=== PATIENT | male | born 1955 | race Caucasian/White ===

== ENCOUNTER 2018-06-09 19:55 | Inpatient (IN) ==
[2018-06-09] MEDS ORDERED: Acetaminophen 325 MG Tablet PO ONE (20:05)
[2018-06-09] MEDS ORDERED: Azithromycin Inj 500 MG in Sodium Chlor 0.9% Inj 250 ML IV.SIG STA (20:05)
--- NOTE | 2018-06-09 20:10 | ED ---
HPI General Chief Complaint: Medical Clearance Stated Complaint: Sepsis Time Seen by Provider: 06/09/18 20:05 Source: patient and EMS Mode of arrival: EMS Limitations: no limitations History of Present Illness HPI Narrative: 62-year-old male patient with history of diabetes, hypertension, obesity, presents to the ER today brought in by EMS for several weeks history of cough, cold symptoms, getting worse, having abdominal pains which he states is periumbilical at a 7 out of 10, short of breath, very tachypneic on the ambulance ride and was given Versed by EMS and is having no improvement. He has had a fever. He denies any vomiting, diarrhea, or other issues. Modifying Factors: None Associated Signs & Symptoms: Fevers, coughing, shortness of breath, abdominal pain Risk Factors: None Related Data Home Medications Medication Instructions Recorded Confirmed No Known Home Medications 06/09/18 06/09/18 Allergies Allergy/AdvReac Type Severity Reaction Status Date / Time No Known Allergies Allergy Weakness Uncoded 06/09/18 20:13 Review of Systems ROS: all other systems reviewed are negative PMFSH History History Provided By: Patient Medical History Medical History Borderline diabetes (Acute) HTN (hypertension) (Acute) Social History Social History Substance History: No History of Abuse Second Hand Smoke Exposure: Yes Smoking Status: Never smoker How Often Do You Have a Drink Containing Alcohol: Monthly or less Exam Narrative Exam Narrative: GENERAL: Well-developed middle-aged obese male patient currently in moderate respiratory distress. Awake and oriented x3. Very difficult historian due to distress. SKIN: Focused skin assessment warm/dry. HEAD: Atraumatic. Normocephalic. EYES: Pupils equal and round. No scleral icterus. No injection or drainage. ENT: No nasal bleeding or discharge. Mucous membranes pink and moist. NECK: Trachea midline. No JVD. CARDIOVASCULAR: Regular rate and rhythm. No murmur appreciated. RESPIRATORY: Moderate accessory muscle use. Clear to auscultation. Breath sounds equal bilaterally. GASTROINTESTINAL: Abdomen soft, mild periumbilical tenderness without guarding or rebound, mildly distended. Hepatic and splenic margins not palpable. MUSCULOSKELETAL: No obvious deformities. No clubbing. No cyanosis. No edema. NEUROLOGICAL: Awake and alert. No obvious cranial nerve deficits. Motor grossly within normal limits. Normal speech. PSYCHIATRIC: Anxious mood and affect; insight and judgment normal. Course Initial Documented Vital Signs Temperature 102.8 F H 06/09/18 20:03 Pulse Rate 128 H 06/09/18 20:03 Blood Pressure 184/93 H 06/09/18 20:03 Pulse Oximetry 95 06/09/18 20:03 Last Documented Vital Signs Temperature 98.9 F 06/09/18 21:22 Pulse Rate 116 H 06/09/18 20:45 Respiratory Rate 20 06/09/18 20:45 Blood Pressure 139/67 06/09/18 20:45 Pulse Oximetry 94 L 06/09/18 20:45 Medical Decision Making MDM Narrative Medical decision making narrative: Lactate is fairly elevated and vital signs are concerning for a sepsis. Chest x-ray did not show any obvious pneumonia. IV antibiotics had been initiated in the ER. CAT scan shows a acute cholecystitis and also some signs of hepatic abscesses. At this point, case was discussed with Dr. Yancey who states that he would like the patient to be medically admitted, will need to evaluate for further surgical treatment. Case is discussed with Dr. Osei for admission. Medical Screen Exam Complete: Yes Emergency Medical Condition: Yes Differential Diagnosis Differential Diagnosis: Pneumonia versus sepsis versus dehydration versus electrolyte abnormalities versus dysrhythmias versus CHF Lab Data Lab results reviewed: Yes I reviewed the patient's lab results. Result diagrams: 06/09/18 20:07 06/09/18 20:07 Lab Results 06/09/18 06/09/18 06/09/18 Range/Units 20:05 20:07 20:07 WBC 11.0 (4.0-11.0) th/mm3 RBC 4.93 (4.50-5.90) mil/mm3 Hgb 13.7 (13.0-17.0) gm/dL Hct 40.3 (39.0-51.0) % MCV 81.7 (80.0-100.0) fL MCH 27.9 (27.0-34.0) pg MCHC 34.1 (32.0-36.0) % RDW 17.6 H (11.6-17.2) % Plt Count 222 (150-450) th/mm3 MPV 8.4 (7.0-11.0) fL Neut % (Auto) 90.8 H (16.0-70.0) % Lymph % (Auto) 6.7 L (9.0-44.0) % [place] % (Auto) 2.2 (0.0-8.0) % Eos % (Auto) 0.1 (0.0-4.0) % Baso % (Auto) 0.2 (0.0-2.0) % Neut # (Auto) 10.0 H (1.8-7.7) th/mm3 Lymph # (Auto) 0.7 L (1.0-4.8) th/mm3 [place] # (Auto) 0.2 (0.0-0.9) th/mm3 Eos # (Auto) 0.0 (0.0-0.4) th/mm3 Baso # (Auto) 0.0 (0.0-0.2) th/mm3 WBC Differential . Differential Comment Auto diff final Puncture Site Patient Temperature O2 Saturation (90-100) % ABG pH (7.380-7.420) ABG pCO2 (38-42) mmHg ABG pO2 (61-120) mmHg ABG HCO3 (22-26) mmol/L ABG O2 Content (12.0-20.0) Vol % ABG Base Excess (-2-2) mmol/L ABG Methemoglobin (0-2) % Will Test Hemoglobin (12.0-16.0) G/DL Carboxyhemoglobin (0-4) % O2 Delivery Device Liter Flow L/M Critical Value Sodium 134 L (136-145) meq/L Potassium 3.1 L (3.5-5.1) meq/L Chloride 96 L (98-107) meq/L Carbon Dioxide 23.8 (21.0-32.0) meq/L Anion Gap 14 (5-15) meq/L BUN 23 H (7-18) mg/dL Creatinine 1.60 H (0.60-1.30) mg/dL Estimated GFR 44 L (>89) mL/min Random Glucose 149 H (74-106) mg/dL Lactic Acid 5.8 H* (0.4-2.0) mmol/L Calcium 8.0 L (8.5-10.1) mg/dL Magnesium 2.0 (1.5-2.5) mg/dL Total Bilirubin 1.1 H (0.2-1.0) mg/dL AST 68 H (15-37) U/L ALT 74 (12-78) U/L Alkaline Phosphatase 172 H (45-117) U/L Troponin I Less than 0.02 L (0.02-0.05) ng/mL B-Natriuretic Peptide (0-100) pg/mL Total Protein 7.9 (6.4-8.2) g/dL Albumin 2.2 L (3.4-5.0) g/dL Lipase 109 (73-393) U/L Urine Color (Yellw/Straw) Urine Clarity (Clear) Urine pH (5.0-8.5) Ur Specific [place] (1.002-1.035) Urine Protein (Neg-Trace) mg/dL Urine Glucose (UA) (Negative) mg/dL Urine Ketones (Negative) mg/dL Urine Occult Blood (Negative) Urine Nitrate (Negative) Urine Bilirubin (Negative) Urine Urobilinogen (Less than 2) mg/dL Ur Leukocyte Esterase (Negative) Urine RBC (0-3) /hpf Urine WBC (0-5) /hpf Ur Squamous Epith Cells (0-5) /hpf Urine Bacteria (None) /hpf Urine Mucus (Occasional) /lpf Micro UA Comment Ur Microscopic Review Urine Culture Comments 06/09/18 06/09/18 06/09/18 Range/Units 20:07 20:10 21:34 WBC (4.0-11.0) th/mm3 RBC (4.50-5.90) mil/mm3 Hgb (13.0-17.0) gm/dL Hct (39.0-51.0) % MCV (80.0-100.0) fL MCH (27.0-34.0) pg MCHC (32.0-36.0) % RDW (11.6-17.2) % Plt Count (150-450) th/mm3 MPV (7.0-11.0) fL Neut % (Auto) (16.0-70.0) % Lymph % (Auto) (9.0-44.0) % [place] % (Auto) (0.0-8.0) % Eos % (Auto) (0.0-4.0) % Baso % (Auto) (0.0-2.0) % Neut # (Auto) (1.8-7.7) th/mm3 Lymph # (Auto) (1.0-4.8) th/mm3 [place] # (Auto) (0.0-0.9) th/mm3 Eos # (Auto) (0.0-0.4) th/mm3 Baso # (Auto) (0.0-0.2) th/mm3 WBC Differential Differential Comment Puncture Site Left radial Patient Temperature 98.6 O2 Saturation 92 (90-100) % ABG pH 7.51 H* (7.380-7.420) ABG pCO2 30 L (38-42) mmHg ABG pO2 66 (61-120) mmHg ABG HCO3 23 (22-26) mmol/L ABG O2 Content 17.4 (12.0-20.0) Vol % ABG Base Excess 0.5 (-2-2) mmol/L ABG Methemoglobin 0.6 (0-2) % Will Test Present Hemoglobin 13.5 (12.0-16.0) G/DL Carboxyhemoglobin 1.4 (0-4) % O2 Delivery Device Nasal cannula Liter Flow 2.00 L/M Critical Value Yes Sodium (136-145) meq/L Potassium (3.5-5.1) meq/L Chloride (98-107) meq/L Carbon Dioxide (21.0-32.0) meq/L Anion Gap (5-15) meq/L BUN (7-18) mg/dL Creatinine (0.60-1.30) mg/dL Estimated GFR (>89) mL/min Random Glucose (74-106) mg/dL Lactic Acid (0.4-2.0) mmol/L Calcium (8.5-10.1) mg/dL Magnesium (1.5-2.5) mg/dL Total Bilirubin (0.2-1.0) mg/dL AST (15-37) U/L ALT (12-78) U/L Alkaline Phosphatase (45-117) U/L Troponin I (0.02-0.05) ng/mL B-Natriuretic Peptide 82 (0-100) pg/mL Total Protein (6.4-8.2) g/dL Albumin (3.4-5.0) g/dL Lipase (73-393) U/L Urine Color Cindy (Yellw/Straw) Urine Clarity Cloudy H (Clear) Urine pH 5.0 (5.0-8.5) Ur Specific [place] 1.026 (1.002-1.035) Urine Protein 100 H (Neg-Trace) mg/dL Urine Glucose (UA) 50 (Negative) mg/dL Urine Ketones Negative (Negative) mg/dL Urine Occult Blood Small H (Negative) Urine Nitrate Negative (Negative) Urine Bilirubin Negative (Negative) Urine Urobilinogen 0.2 (Less than 2) mg/dL Ur Leukocyte Esterase Negative (Negative) Urine RBC 1 (0-3) /hpf Urine WBC 7 H (0-5) /hpf Ur Squamous Epith Cells 2 (0-5) /hpf Urine Bacteria Rare H (None) /hpf Urine Mucus Many H (Occasional) /lpf Micro UA Comment Culture not ind Ur Microscopic Review Not Reportable Urine Culture Comments Culture not ind 06/09/18 Range/Units 22:15 WBC (4.0-11.0) th/mm3 RBC (4.50-5.90) mil/mm3 Hgb (13.0-17.0) gm/dL Hct (39.0-51.0) % MCV (80.0-100.0) fL MCH (27.0-34.0) pg MCHC (32.0-36.0) % RDW (11.6-17.2) % Plt Count (150-450) th/mm3 MPV (7.0-11.0) fL Neut % (Auto) (16.0-70.0) % Lymph % (Auto) (9.0-44.0) % [place] % (Auto) (0.0-8.0) % Eos % (Auto) (0.0-4.0) % Baso % (Auto) (0.0-2.0) % Neut # (Auto) (1.8-7.7) th/mm3 Lymph # (Auto) (1.0-4.8) th/mm3 [place] # (Auto) (0.0-0.9) th/mm3 Eos # (Auto) (0.0-0.4) th/mm3 Baso # (Auto) (0.0-0.2) th/mm3 WBC Differential Differential Comment Puncture Site Patient Temperature O2 Saturation (90-100) % ABG pH (7.380-7.420) ABG pCO2 (38-42) mmHg ABG pO2 (61-120) mmHg ABG HCO3 (22-26) mmol/L ABG O2 Content (12.0-20.0) Vol % ABG Base Excess (-2-2) mmol/L ABG Methemoglobin (0-2) % Will Test Hemoglobin (12.0-16.0) G/DL Carboxyhemoglobin (0-4) % O2 Delivery Device Liter Flow L/M Critical Value Sodium (136-145) meq/L Potassium (3.5-5.1) meq/L Chloride (98-107) meq/L Carbon Dioxide (21.0-32.0) meq/L Anion Gap (5-15) meq/L BUN (7-18) mg/dL Creatinine (0.60-1.30) mg/dL Estimated GFR (>89) mL/min Random Glucose (74-106) mg/dL Lactic Acid 2.1 H (0.4-2.0) mmol/L Calcium (8.5-10.1) mg/dL Magnesium (1.5-2.5) mg/dL Total Bilirubin (0.2-1.0) mg/dL AST (15-37) U/L ALT (12-78) U/L Alkaline Phosphatase (45-117) U/L Troponin I (0.02-0.05) ng/mL B-Natriuretic Peptide (0-100) pg/mL Total Protein (6.4-8.2) g/dL Albumin (3.4-5.0) g/dL Lipase (73-393) U/L Urine Color (Yellw/Straw) Urine Clarity (Clear) Urine pH (5.0-8.5) Ur Specific [place] (1.002-1.035) Urine Protein (Neg-Trace) mg/dL Urine Glucose (UA) (Negative) mg/dL Urine Ketones (Negative) mg/dL Urine Occult Blood (Negative) Urine Nitrate (Negative) Urine Bilirubin (Negative) Urine Urobilinogen (Less than 2) mg/dL Ur Leukocyte Esterase (Negative) Urine RBC (0-3) /hpf Urine WBC (0-5) /hpf Ur Squamous Epith Cells (0-5) /hpf Urine Bacteria (None) /hpf Urine Mucus (Occasional) /lpf Micro UA Comment Ur Microscopic Review Urine Culture Comments Imaging Data Attestation: I personally reviewed and interpreted this imaging study as follows : Radiologist's impression: Chest X-Ray 06/09/18 20:05 CONCLUSION: Bibasilar atelectasis and upper limits of normal heart size. Abdomen/Pelvis CT 06/09/18 21:21 CONCLUSION: 1. The gallbladder is markedly abnormal with a thickened wall and some surrounding inflammatory stranding. There are also low-density areas in the adjacent hepatic parenchyma presumably intrahepatic abscesses. ECG Data Attestation: I personally reviewed and interpreted this ECG as follows: Interpretation: EKG shows a sinus tachycardia rate of 129 bpm. No signs of acute ST elevations. Nonspecific ST changes notable in the anterolateral leads. Discharge Plan Discharge Disposition Patient Disposition: ED Admit(ED Internal Use Only) Discharge Condition Condition: Fair Discharge Order Discharge Orders: ED Use Only Admit Order (Routine); Ordered 06/09/18 Ordered By: Sherman Caceres Discharge Details Anticipated Discharge Date: 06/09/18 Diagnosis: Acute cholecystitis, Sepsis Physicians Team ED Provider: Sherman Caceres Primary Care Provider: Nestor William Rxs /Orders / Referrals /Forms Prescriptions: No Action No Known Home Medications RF: 0 Discharge Interventions Interventions: Vital Signs Last Done: 06/09/18 21:22 Status ED Status: With Doctor
[2018-06-09 20:23] LABS: ABG Base Excess 0.5 mmol/L (-2-2); ABG PCO2 30 mmHg (38-42)
[2018-06-09 20:24] LABS: ABG PO2 66 mmHg (61-120)
[2018-06-09 20:37] LABS: Baso % (Auto) 0.2 % (0.0-2.0); Eos % (Auto) 0.1 % (0.0-4.0); Hematocrit 40.3 % (39.0-51.0); Hemoglobin 13.7 gm/dL (13.0-17.0); Lymph # (Auto) 0.7 th/mm3 (1.0-4.8); Lymph % (Auto) 6.7 % (9.0-44.0); Mean Corpuscular HGB Conc 34.1 % (32.0-36.0); Mean Corpuscular Hemoglobin 27.9 pg (27.0-34.0); Mean Corpuscular Volume 81.7 fL (80.0-100.0); Mean Platelet Volume 8.4 fL (7.0-11.0); Mono # (Auto) 0.2 th/mm3 (0.0-0.9); Mono % (Auto) 2.2 % (0.0-8.0); Neut % (Auto) 90.8 % (16.0-70.0); Platelet Count 222 th/mm3 (150-450); Red Blood Count 4.93 mil/mm3 (4.50-5.90); Red Cell Distribution Width 17.6 % (11.6-17.2)
--- NOTE | 2018-06-09 20:56 | XR ---
EXAM DATE: 06/09/2018 8:51 PM EST AGE/SEX: 62 years / Male INDICATIONS: Fever. CLINICAL DATA: This is the patient's initial encounter. Patient reports that signs and symptoms have been present for 1 week and indicates a pain score of 0/10. MEDICAL/SURGICAL HISTORY: None. None. COMPARISON: No prior exams available for comparison. FINDINGS: Mild atelectasis of both bases. No pleural effusion or pneumothorax seen. Heart size upper limits of normal. CONCLUSION: Bibasilar atelectasis and upper limits of normal heart size. Electronically signed by: Andrea Jolley MD Board Certified Radiologist 06/09/2018 8:55 PM EST
[2018-06-09 21:02] LABS: Albumin 2.2 g/dL (3.4-5.0); Anion Gap 14 meq/L (5-15); Aspartate Aminotransferase 68 U/L (15-37); Blood Urea Nitrogen 23 mg/dL (7-18); Carbon Dioxide 23.8 meq/L (21.0-32.0); Chloride 96 meq/L (98-107); Glomerular Filtration Rate 44 mL/min (>89); Glucose,Random 149 mg/dL (74-106); Lipase 109 U/L (73-393); Potassium 3.1 meq/L (3.5-5.1); Sodium 134 meq/L (136-145)
[2018-06-09 21:09] LABS: Alanine Aminotransferase 74 U/L (12-78); Alkaline Phosphatase 172 U/L (45-117); Total Protein 7.9 g/dL (6.4-8.2)
[2018-06-09] MEDS ORDERED: Sod Chloride 0.9% Inj 1,000 ML IV.SIG SCH (22:00)
[2018-06-09 22:35] LABS: Bacteria,Urine Rare /hpf; Bilirubin,Urine Negative (Negative); Clarity,Urine Cloudy (Clear); Color,Urine Amber (Yellw/Straw); Glucose,Urine (UA) 50 mg/dL (Negative); Leukocyte Esterase,Urine Negative (Negative); Mucus,Urine Many /lpf (Occasional); Nitrite,Urine Negative (Negative); Specific Gravity,Urine 1.026 (1.002-1.035); Squamous Epithelial Cell,Urine 2 /hpf (0-5)
[2018-06-09 22:37] LABS: Urobilinogen,Urine 0.2 mg/dL (Less than 2)
--- NOTE | 2018-06-09 23:23 | CT ---
EXAM DATE: 06/09/2018 11:16 PM EST AGE/SEX: 62 years / Male INDICATIONS: Abdominal pain. CLINICAL DATA: This is the patient's initial encounter. Patient reports that signs and symptoms have been present for 2 weeks and indicates a pain score of 7/10. MEDICAL/SURGICAL HISTORY: Hypertension. None. ORAL CONTRAST: No oral contrast ingested. RADIATION DOSE: 28.14 CTDI (mGy) COMPARISON: No prior exams available for comparison. TECHNIQUE: Multiple contiguous axial images were obtained through the abdomen and pelvis following b olus infusion of 46 ml Visipaque 320 (iodixanol) nonionic water-soluble contrast as a single exam d ose. No oral contrast ingested. Using automated exposure control and adjustment of the mA and/or kV according to patient size, radiation dose was kept as low as reasonably achievable to obtain optimal diagnostic quality images. DICOM format image data is available electronically for review and compar len. FINDINGS: Lower Lungs: The visualized lower lungs are clear. Liver: The liver has a homogeneous density without space-occupying lesion. There is no dilation of th e biliary tree. The gallbladder is abnormal. It is distended with a markedly thickened wall. There ar e areas of low density in the surrounding liver parenchyma possible intrahepatic abscess one area rey suring 4.9 x 2.7 cm across. Spleen: Homogeneous density without enlargement. Pancreas: Unremarkable without mass or calcification. Kidneys: Normal in size and shape. No evidence of mass or hydronephrosis. Adrenal Glands: Unremarkable. Aorta: The aorta and proximal iliac vessels are grossly unremarkable without aneurysmal dilation. Bowel/Mesentery: The bowel loops are grossly unremarkable. The cecum and sigmoid colon have a normal configuration. Abdominal Wall: Intact. Retroperitoneum: No evidence of adenopathy in the retrocrural, para-aortic, or deep pelvic regions. Bladder: Contours are smooth. Reproductive Organs: No abnormal masses or calcifications seen. Inguinal: The inguinal region is unremarkable without evidence of adenopathy. Bony Structures: Unremarkable. CONCLUSION: 1. The gallbladder is markedly abnormal with a thickened wall and some surrounding inflammatory stra nding. There are also low-density areas in the adjacent hepatic parenchyma presumably intrahepatic ab scesses. Electronically signed by: Nicho Grace MD Board Certified Radiologist 06/09/2018 11:22 PM EST
[2018-06-09] MEDS ORDERED: Sod Chloride 0.9% Inj 1,000 ML IV.CONT SCH (23:45)
[2018-06-09] MEDS ORDERED: Bisacodyl 10 MG Supp RECTAL PRN (23:46)
[2018-06-09] MEDS ORDERED: Acetaminophen 325 MG Tablet PO PRN (23:46)
--- NOTE | 2018-06-09 23:46 | P.HPIM ---
History of Present Illness Primary Care Physician: Nestor William MD History of Present Illness: UA negative for UTI.This is a 62-year-old male with a PMH of HTN who was brought to the ER by EMS for complaints of generalized malaise, abdominal pain, nausea/vomiting and SOB. Upon EMS arrival , pt noted to be febrile w/ Temp 102.0. No h/o similar symptoms. Abdominal pain is epigastric, intermittent, sharp, 8/10, non-radiating. On arrival, BP 184/93, HR 128, O2 sat 95% on RA, Temp 102.8. CBC unremarkable. Creatinine 1.60, no previous labs for comparison. Lactic Acid 5.8, repeat 2.1. Troponin negative. Lipase normal. CXR with no significant findings. Abdomen/Pelvis markedly abnormal gallbladder with thickened wall and surrounding inflammatory stranding, low density areas in the adjacent hepatic parenchyma presumably intrahepatic abscesses. Dr. Felix consulted by ER physician, will evaluate. S /p Rocephin/Zithro in ER. Diagnosis (1) Sepsis: (2) Cholecystitis: (3) Liver abscess: Review of Systems PAST FAMILY HISTORY: Reviewed. No h/o DM or CAD Review of Systems: all other systems reviewed are negative [facility] Medical History Medical History Borderline diabetes (Acute) HTN (hypertension) (Acute) Social History Social History Substance History: No History of Abuse Second Hand Smoke Exposure: Yes Smoking Status: Never smoker How Often Do You Have a Drink Containing Alcohol: Monthly or less Immunization History Tetanus Immunization: <5 Years Medications and Allergies Allergies Allergy/AdvReac Type Severity Reaction Status Date / Time No Known Allergies Allergy Weakness Uncoded 06/09/18 20:13 Home Medications Medication Instructions Recorded Confirmed Type No Known Home Medications 06/09/18 06/09/18 History Physical Exam Vital signs: Last Vital Signs Temp 98.9 F 06/09/18 21:22 Pulse 116 H 06/09/18 20:45 Resp 20 06/09/18 20:45 BP 139/67 06/09/18 20:45 Pulse Ox 94 L 06/09/18 20:45 Intake & Output 06/07/18 06/08/18 06/09/18 06/10/18 06:59 06:59 06:59 06:59 Intake Total 1350 / 1350 Balance 1350 / 1350 Weight 136.078 kg Narrative: PE: GENERAL: Very pleasant middle-aged white male in no acute distress, + diaphoretic. at bedside. SKIN: Focused skin assessment warm and dry. HEENT: PERRLA, EOMI. No scleral icterus or conjunctival pallor. No lid lag or facial droop. CARDIOVASCULAR: Regular rate and rhythm. No obvious murmurs to auscultation. No chest tenderness to palpation. RESPIRATORY: No obvious rhonchi or wheezing. Clear to auscultation. Breath sounds equal bilaterally. GASTROINTESTINAL: Abdomen soft, epigastric tenderness to palpation, nondistended. BS normal. MUSCULOSKELETAL: Extremities without clubbing, cyanosis, or edema. No obvious deformities. NEUROLOGICAL: Awake, alert and oriented x4. No focal neurologic deficits. Moving both upper and lower extremities spontaneously. PSYCHIATRIC: Appropriate mood and affect. Insight and judgment normal. Results Labs CBC & Chem 7: 06/09/18 20:07 06/09/18 20:07 Imaging Impressions Chest X-Ray 06/09/18 20:05 CONCLUSION: Bibasilar atelectasis and upper limits of normal heart size. Abdomen/Pelvis CT 06/09/18 21:21 CONCLUSION: 1. The gallbladder is markedly abnormal with a thickened wall and some surrounding inflammatory stranding. There are also low-density areas in the adjacent hepatic parenchyma presumably intrahepatic abscesses. Caprini VTE Risk Assessment Caprini VTE Risk Assessment: No/Low Risk (score <= 1) Caprini Risk Assessment Model: Point Value = 1 Point Value = 2 Point Value = 3 Point Value = 5 Age 41-60 Minor surgery BMI > 25 kg/m2 Swollen legs Varicose veins or History of unexplained or recurrent spontaneous Oral contraceptives or hormone replacement Sepsis (< 1 month) Serious lung disease, including pneumonia (< 1 month) Abnormal pulmonary function Acute myocardial infarction Congestive heart failure (< 1 month) History of inflammatory bowel disease Medical patient at bed rest Age 61-74 Arthroscopic surgery Major open surgery (> 45 min) Laparoscopic surgery (> 45 min) Malignancy Confined to bed (> 72 hours) Immobilizing plaster cast Central venous access Age >= 75 History of VTE Family history of VTE Factor V Leiden Prothrombin [id number] Lupus anticoagulant Anticardiolipin antibodies Elevated serum homocysteine Heparin-induced thrombocytopenia Other congenital or acquired thrombophilia Stroke (< 1 month) Elective arthroplasty Hip, pelvis, or leg fracture Acute spinal cord injury (< 1 month) Prophylaxis Regimen: Total Risk Factor Score Risk Level Prophylaxis Regimen 0-1 Low Early ambulation 2 Moderate Order ONE of the following: *Sequential Compression Device (SCD) *Heparin 5000 units SQ BID 3-4 Higher Order ONE of the following medications: *Heparin 5000 units SQ TID *Enoxaparin/Lovenox 40 mg SQ daily (WT < 150 kg, CrCl > 30 mL/min) *Enoxaparin/Lovenox 30 mg SQ daily (WT < 150 kg, CrCl > 10-29 mL/min) *Enoxaparin/Lovenox 30 mg SQ BID (WT < 150 kg, CrCl > 30 mL/min) AND/OR *Sequential Compression Device (SCD) 5 or more Highest Order ONE of the following medications: *Heparin 5000 units SQ TID (Preferred with Epidurals) *Enoxaparin/Lovenox 40 mg SQ daily (WT < 150 kg, CrCl > 30 mL/min) *Enoxaparin/Lovenox 30 mg SQ daily (WT < 150 kg, CrCl > 10-29 mL/min) *Enoxaparin/Lovenox 30 mg SQ BID (WT < 150 kg, CrCl > 30 mL/min) AND *Sequential Compression Device (SCD) Assessment and Plan (1) Sepsis: Code(s): A41.9 - Sepsis, unspecified organism Status: Acute (2) Cholecystitis: Code(s): K81.9 - Cholecystitis, unspecified Status: Acute (3) Liver abscess: Code(s): K75.0 - Abscess of liver Status: Acute Plan A/P: 1. Sepsis: Temp 102.4, HR 128, Lactic Acid 5.8, Source-Acute Cholecystitis, s/ p Rocephin/Zithro in ER for presumed PNA, however will continue w/ IV Zosyn. Follow up cultures, IVF for hydration, repeat Lactic Acid-trending down to 2.1. 2. Cholecystitis: CT Abd/Pelvis w/ markedly abnormal gallbladder w/ wall thickening/inflammatory stranding, Dr. Yancey consulted, will eval in am. Continue w/ IV Abx, analgesics/antiemetics as needed. 3. Liver Abscess: CT Abd/Pelvis w/ low density areas adjacent to hepatic parenchyma presumably intrahepatic abscesses, no previous imaging for comparison. Check blood cultures to eval for possible bacteremia, continue w/ Zosyn, add Flagyl. Consult ID as needed for further recommendations. 4. DVT Prophylaxis: SCD/Teds 5. Social work for d/c planning as needed. 6. Case discussed w/ ER physician at length, labs/records/imaging reviewed by me.
[2018-06-10] MEDS: Piperacil/Tazo 4.5 GM Premix 4.5 GM/100 ML BAG IV.SIG SCH ×3 (06:11→17:18)
[2018-06-10 06:31] LABS: Baso % (Auto) 0.2 % (0.0-2.0); Hematocrit 36.7 % (39.0-51.0); Hemoglobin 12.4 gm/dL (13.0-17.0); Lymph # (Auto) 0.7 th/mm3 (1.0-4.8); Lymph % (Auto) 2.9 % (9.0-44.0); Mean Corpuscular HGB Conc 33.9 % (32.0-36.0); Mean Corpuscular Hemoglobin 27.9 pg (27.0-34.0); Mean Corpuscular Volume 82.3 fL (80.0-100.0); Mean Platelet Volume 8.7 fL (7.0-11.0); Mono # (Auto) 1.5 th/mm3 (0.0-0.9); Mono % (Auto) 5.8 % (0.0-8.0); Neut # (Auto) 22.9 th/mm3 (1.8-7.7); Neut % (Auto) 91.1 % (16.0-70.0); Platelet Count 196 th/mm3 (150-450); Red Blood Count 4.45 mil/mm3 (4.50-5.90); Red Cell Distribution Width 17.8 % (11.6-17.2); White Blood Count 25.1 th/mm3 (4.0-11.0)
[2018-06-10 07:00] LABS: Albumin 1.8 g/dL (3.4-5.0); Calcium 7.2 mg/dL (8.5-10.1); Carbon Dioxide 28.6 meq/L (21.0-32.0); Total Protein 6.8 g/dL (6.4-8.2)
[2018-06-10 07:33] LABS: Potassium 2.7 meq/L (3.5-5.1)
[2018-06-10] MEDS: Senna/Docusate Sodium 8.6/50 MG Tablet PO SCH ×2 (08:43→22:24)
--- NOTE | 2018-06-10 10:23 | P.PNGS ---
Subjective Patient reports: no new complaints (Thirsty, has a dry mouth. Wants to sip on water swish around and then spit it out. Increase in abdominal pain. He has had chills.) Physical Exam Vital signs: Vital Signs 06/09/18 20:03 06/09/18 20:15 06/09/18 20:45 Temperature 102.8 F H Pulse Rate 128 H 128 H 116 H Respiratory Rate 20 Blood Pressure 184/93 H 139/67 Pulse Oximetry 95 95 94 L 06/09/18 21:22 06/10/18 00:18 06/10/18 00:47 Temperature 98.9 F Pulse Rate 81 Respiratory Rate 18 18 Blood Pressure 96/50 L Pulse Oximetry 06/10/18 02:47 06/10/18 08:00 Temperature 97.5 F L 97.2 F L Pulse Rate 82 80 Respiratory Rate 18 17 Blood Pressure 99/55 L 116/66 Pulse Oximetry 94 L 96 Intake & Output 06/09/18 06/10/18 06/10/18 18:59 06:59 18:59 Intake Total 1450 / 1450 300 / 300 Output Total 80 / 80 Balance 1370 / 1370 300 / 300 Weight 136.6 kg Intake: IV 1450 / 1450 300 / 300 NS Inj 1,000 ML @ 100 mls/hr IV 100 / 100 .CONT .Q10H DAPHNE Rx#:[id number] Azithromycin Inj 500 MG In NS 250 / 250 Inj 250 ML @ 250 mls/hr IV.SIG STAT STA Rx#:[id number] Zosyn 4.5 GM Premix 4.5 gm In 100 / 100 100 ml @ 200 mls/hr IV.SIG Q6H DAPHNE Rx#:[id number] NS Inj 1,000 ML @ 1000 mls/hr 1000 / 1000 IV.SIG BOLUS DAPHNE Rx#:[id number] Rocephin Inj 2,000 MG In NS Inj 100 / 100 100 ML @ 200 mls/hr IV.SIG STAT STA Rx#:[id number] Flagyl 500 MG Inj 100 ML @ 100 100 / 100 100 / 100 mls/hr IV.SIG Q8H DAPHNE Rx#: [id number] Output: Urine 80 / 80 Other: # Voids 1 Date of Last Bowel Movement 06/10/18 Narrative: Large protuberant abdomen. Minimal tenderness to palpation in the right upper quadrant. No rebound or guarding. Results - Labs 06/10/18 06:00 06/10/18 05:29 Laboratory Results - last 24 hr 06/09/18 06/09/18 06/09/18 20:05 20:07 20:07 WBC 11.0 RBC 4.93 Hgb 13.7 Hct 40.3 MCV 81.7 MCH 27.9 MCHC 34.1 RDW 17.6 H Plt Count 222 MPV 8.4 Neut % (Auto) 90.8 H Lymph % (Auto) 6.7 L [place] % (Auto) 2.2 Eos % (Auto) 0.1 Baso % (Auto) 0.2 Neut # (Auto) 10.0 H Lymph # (Auto) 0.7 L [place] # (Auto) 0.2 Eos # (Auto) 0.0 Baso # (Auto) 0.0 WBC Differential . Differential Comment Auto diff final Puncture Site Patient Temperature O2 Saturation ABG pH ABG pCO2 ABG pO2 ABG HCO3 ABG O2 Content ABG Base Excess ABG Methemoglobin Will Test Hemoglobin Carboxyhemoglobin O2 Delivery Device Liter Flow Critical Value Sodium 134 L Potassium 3.1 L Chloride 96 L Carbon Dioxide 23.8 Anion Gap 14 BUN 23 H Creatinine 1.60 H Estimated GFR 44 L Random Glucose 149 H Lactic Acid 5.8 H* Calcium 8.0 L Calcium Adj for Albumin Magnesium 2.0 Total Bilirubin 1.1 H AST 68 H ALT 74 Alkaline Phosphatase 172 H Troponin I Less than 0.02 L B-Natriuretic Peptide Total Protein 7.9 Albumin 2.2 L Lipase 109 Urine Color Urine Clarity Urine pH Ur Specific [place] Urine Protein Urine Glucose (UA) Urine Ketones Urine Occult Blood Urine Nitrate Urine Bilirubin Urine Urobilinogen Ur Leukocyte Esterase Urine RBC Urine WBC Ur Squamous Epith Cells Urine Bacteria Urine Mucus Micro UA Comment Ur Microscopic Review Urine Culture Comments 06/09/18 06/09/18 06/09/18 20:07 20:10 21:34 WBC RBC Hgb Hct MCV MCH MCHC RDW Plt Count MPV Neut % (Auto) Lymph % (Auto) [place] % (Auto) Eos % (Auto) Baso % (Auto) Neut # (Auto) Lymph # (Auto) [place] # (Auto) Eos # (Auto) Baso # (Auto) WBC Differential Differential Comment Puncture Site Left radial Patient Temperature 98.6 O2 Saturation 92 ABG pH 7.51 H* ABG pCO2 30 L ABG pO2 66 ABG HCO3 23 ABG O2 Content 17.4 ABG Base Excess 0.5 ABG Methemoglobin 0.6 Will Test Present Hemoglobin 13.5 Carboxyhemoglobin 1.4 O2 Delivery Device Nasal cannula Liter Flow 2.00 Critical Value Yes Sodium Potassium Chloride Carbon Dioxide Anion Gap BUN Creatinine Estimated GFR Random Glucose Lactic Acid Calcium Calcium Adj for Albumin Magnesium Total Bilirubin AST ALT Alkaline Phosphatase Troponin I B-Natriuretic Peptide 82 Total Protein Albumin Lipase Urine Color Cindy Urine Clarity Cloudy H Urine pH 5.0 Ur Specific [place] 1.026 Urine Protein 100 H Urine Glucose (UA) 50 Urine Ketones Negative Urine Occult Blood Small H Urine Nitrate Negative Urine Bilirubin Negative Urine Urobilinogen 0.2 Ur Leukocyte Esterase Negative Urine RBC 1 Urine WBC 7 H Ur Squamous Epith Cells 2 Urine Bacteria Rare H Urine Mucus Many H Micro UA Comment Culture not ind Ur Microscopic Review Not Reportable Urine Culture Comments Culture not ind 06/09/18 06/10/18 06/10/18 22:15 05:29 06:00 WBC 25.1 H D RBC 4.45 L Hgb 12.4 L Hct 36.7 L MCV 82.3 MCH 27.9 MCHC 33.9 RDW 17.8 H Plt Count 196 MPV 8.7 Neut % (Auto) 91.1 H Lymph % (Auto) 2.9 L [place] % (Auto) 5.8 Eos % (Auto) 0.0 Baso % (Auto) 0.2 Neut # (Auto) 22.9 H Lymph # (Auto) 0.7 L [place] # (Auto) 1.5 H Eos # (Auto) 0.0 Baso # (Auto) 0.0 WBC Differential . Differential Comment Auto diff final Puncture Site Patient Temperature O2 Saturation ABG pH ABG pCO2 ABG pO2 ABG HCO3 ABG O2 Content ABG Base Excess ABG Methemoglobin Will Test Hemoglobin Carboxyhemoglobin O2 Delivery Device Liter Flow Critical Value Sodium 141 Potassium 2.7 L* Chloride 103 Carbon Dioxide 28.6 Anion Gap 9 BUN 25 H Creatinine 1.45 H Estimated GFR 49 L Random Glucose 162 H Lactic Acid 2.1 H Calcium 7.2 L* D Calcium Adj for Albumin 9.0 Magnesium Total Bilirubin 1.2 H AST 71 H ALT 72 Alkaline Phosphatase 147 H Troponin I B-Natriuretic Peptide Total Protein 6.8 D Albumin 1.8 L Lipase Urine Color Urine Clarity Urine pH Ur Specific [place] Urine Protein Urine Glucose (UA) Urine Ketones Urine Occult Blood Urine Nitrate Urine Bilirubin Urine Urobilinogen Ur Leukocyte Esterase Urine RBC Urine WBC Ur Squamous Epith Cells Urine Bacteria Urine Mucus Micro UA Comment Ur Microscopic Review Urine Culture Comments - Imaging Imaging: ITS Impressions Chest X-Ray 06/09/18 20:05 CONCLUSION: Bibasilar atelectasis and upper limits of normal heart size. Abdomen/Pelvis CT 06/09/18 21:21 CONCLUSION: 1. The gallbladder is markedly abnormal with a thickened wall and some surrounding inflammatory stranding. There are also low-density areas in the adjacent hepatic parenchyma presumably intrahepatic abscesses. Assessment and Plan - Assessment (1) Liver abscess Code(s): K75.0 - Abscess of liver Status: Acute (2) Cholecystitis Code(s): K81.9 - Cholecystitis, unspecified Status: Acute - Plan I personally reviewed the patient's CT scan, I discussed the findings with Dr. Cooney of radiology. I evaluated the patient and discussed with he and his significant other. I have recommended percutaneous drainage of the gallbladder and the liver abscess before pursuing operative intervention. I discussed with the patient that more emergent operative intervention would likely increase the risk of requiring an open procedure and increased blood loss due to involvement of the abscess in the liver. Treatment with drainage and IV antibiotics will likely allow the situation to be temporized until the patient can come back for a more controlled, more likely laparoscopic, procedure to remove his gallbladder. He expressed an understanding and was willing for me to put in the order for CT-guided drainage of the gallbladder and the adjacent liver abscess. I will call the operating room to cancel the surgery that was added on for today. The patient denies taking any blood thinning medicines. I reiterated the need to avoid swallowing any fluids prior to the CT-guided intervention. After he is undergone drainage from the surgical standpoint he could resume normal dietary oral intake. Discussed Condition With: Dr. Plaza, patient, .
[2018-06-10] MEDS ORDERED: Lidocaine 1%/Epinephrine 1:100,000 Inj 20 ML Vial ONE (11:30)
[2018-06-10] MEDS ORDERED: fentaNYL Citrate Inj 250 MCG/5 ML Ampul ONE (11:48)
--- NOTE | 2018-06-10 12:28 | MB ---
cc: Maqrues Yancey MD DATE: 06/10/2018 [employer]: Sandi Osei MD REASON FOR CONSULTATION: Acute cholecystitis, liver abscess. HISTORY OF PRESENT ILLNESS: The patient is a pleasant 62-year-old male who presents to the emergency department with acute on chronic abdominal pain. The patient states the pain started several weeks ago and the patient has been taking ibuprofen for relief. The patient notes within the last week on 05/27/2018, pain got significantly worse in severity. He noted 8/10, located in the right upper quadrant, intermittent, sharp, some epigastric pain as well. He came to the emergency department for further evaluation with temperature of 102.8. WBC of 11. Lactate of 5.[address] scan findings of thickened gallbladder wall, pericholecystic fluid, concern for cholecystitis with liver abscess. The patient states he has had chronic abdominal pain in the past, worked up at [facility] with ultrasounds without a definitive diagnosis. The patient states this pain is more severe than previous, and the patient does complain of some fevers and sweats associated nausea, vomiting and general malaise. PAST MEDICAL HISTORY: Hypertension, borderline diabetes. PAST SURGICAL HISTORY: The patient has no surgical history. SOCIAL HISTORY: Denies smoking, occasional ETOH. Denies IVDA. ALLERGIES: NO KNOWN DRUG ALLERGIES. MEDICATIONS: See EMR. FAMILY HISTORY: Mother and father with diabetes. REVIEW OF SYSTEMS: GENERAL: Complains and malaise. HEENT: Denies eye pain, ear pain. NECK: Denies swelling or pain. LUNGS: Denies cough or wheeze. HEART: Denies palpitations or chest pain. ABDOMEN: Complains of abdominal pain, nausea, or vomiting. GENITOURINARY: Denies dysuria or hematuria. Denies polyuria or polydipsia. INTEGUMENT: Denies any masses or lesions. PHYSICAL EXAMINATION: GENERAL: The patient in no acute distress. VITAL SIGNS: T-max 102.8, temperature current is 98.9, pulse 116, blood pressure 139/67, respirations 20, saturation 94%. HEENT: Pupils equal, round, reactive. NECK: Supple. Trachea midline. LUNGS: Clear to auscultation, bilateral expansion. HEART: S1, S2, tachycardia. ABDOMEN: Soft. Positive tenderness to palpation located in his right upper quadrant. No rebound, no guarding. EXTREMITIES: Warm and well perfused. NEUROLOGIC: 5/5 motor. Awake, alert and oriented x4. PSYCHIATRIC: Appropriate mood, appropriate judgment. LABORATORY AND DIAGNOSTIC DATA: WBC 11, hemoglobin 13.7, hematocrit 40.3, and platelets 222. Sodium 134, potassium 3.1, chloride 96, BUN is 23, creatinine 1.6, platelets 149. AST 68, ALT 74, alkaline phosphatase of 172. Bilirubin is 1.1, albumin 2.2, lipase 109. Lactate 5.8. CT reviewed by myself showing acute cholecystitis, thickened gallbladder wall, no pericholecystic fluid and adjacent liver abscess. ASSESSMENT: The patient is a 62-year-old male who presents with acute cholecystitis, concern for liver abscess. PLAN: After full workup, the patient with the above-note issue at this point. I discussed with the patient in detail. The patient has concern for acute cholecystitis and likely would warrant operative intervention. We will consider laparoscopic cholecystectomy, possible percutaneous drainage of liver abscess. I discussed this in detail with the patient. The patient stating he prefer alternative treatments for medical issue and I discussed typically we entertain surgery for this. However, other alternatives would be a percutaneous interventional radiology, decompression with a cholecystostomy tube, and drainage of abscess and/or antibiotic treatment. We will continue to discuss and we will discuss with primary, Dr. Watson. We discussed with the patient in detail who states understanding and agrees. Continue antibiotics, n.p.o. for now, IV fluids, pain control. We will continue to follow. Thank you for consultation. MD DEBBIE Stephens/franny , 11:18 AM , 11:29 AM
--- NOTE | 2018-06-10 12:57 | P.PNIM ---
Subjective Interval history: Nursing denies any acute changes overnight except for the lab calling a critical of a low potassium at 2.7. Patient says his abdominal pain is gone at this time. No nausea no vomiting. Physical Exam Vital signs: Vital Signs 06/09/18 20:03 06/09/18 20:15 06/09/18 20:45 Temperature 102.8 F H Pulse Rate 128 H 128 H 116 H Respiratory Rate 20 Blood Pressure 184/93 H 139/67 Pulse Oximetry 95 95 94 L 06/09/18 21:22 06/10/18 00:18 06/10/18 00:47 Temperature 98.9 F Pulse Rate 81 Respiratory Rate 18 18 Blood Pressure 96/50 L Pulse Oximetry 06/10/18 02:47 06/10/18 08:00 Temperature 97.5 F L 97.2 F L Pulse Rate 82 80 Respiratory Rate 18 17 Blood Pressure 99/55 L 116/66 Pulse Oximetry 94 L 96 Intake & Output 06/09/18 06/10/18 06/10/18 18:59 06:59 18:59 Intake Total 1450 / 1450 300 / 300 Output Total 80 / 80 Balance 1370 / 1370 300 / 300 Weight 136.6 kg Intake: IV 1450 / 1450 300 / 300 NS Inj 1,000 ML @ 100 mls/hr IV 100 / 100 .CONT .Q10H DAPHNE Rx#:[id number] Azithromycin Inj 500 MG In NS 250 / 250 Inj 250 ML @ 250 mls/hr IV.SIG STAT STA Rx#:[id number] Zosyn 4.5 GM Premix 4.5 gm In 100 / 100 100 ml @ 200 mls/hr IV.SIG Q6H DAPHNE Rx#:[id number] NS Inj 1,000 ML @ 1000 mls/hr 1000 / 1000 IV.SIG BOLUS DAPHNE Rx#:[id number] Rocephin Inj 2,000 MG In NS Inj 100 / 100 100 ML @ 200 mls/hr IV.SIG STAT STA Rx#:[id number] Flagyl 500 MG Inj 100 ML @ 100 100 / 100 100 / 100 mls/hr IV.SIG Q8H DAPHNE Rx#: [id number] Output: Urine 80 / 80 Other: # Voids 1 Date of Last Bowel Movement 06/10/18 Narrative: Mild right-sided abdominal tenderness to palpation, otherwise abdomen soft, benign, nondistended Clear lungs bilaterally, unlabored breathing Heart sounds regular rate and rhythm, no murmurs awake and alert, no acute distress Results - Labs CBC & Chem 7: 06/10/18 06:00 06/10/18 05:29 Laboratory Results - last 24 hr 06/09/18 06/09/18 06/09/18 20:05 20:07 20:07 WBC 11.0 RBC 4.93 Hgb 13.7 Hct 40.3 MCV 81.7 MCH 27.9 MCHC 34.1 RDW 17.6 H Plt Count 222 MPV 8.4 Neut % (Auto) 90.8 H Lymph % (Auto) 6.7 L [place] % (Auto) 2.2 Eos % (Auto) 0.1 Baso % (Auto) 0.2 Neut # (Auto) 10.0 H Lymph # (Auto) 0.7 L [place] # (Auto) 0.2 Eos # (Auto) 0.0 Baso # (Auto) 0.0 WBC Differential . Differential Comment Auto diff final Puncture Site Patient Temperature O2 Saturation ABG pH ABG pCO2 ABG pO2 ABG HCO3 ABG O2 Content ABG Base Excess ABG Methemoglobin Will Test Hemoglobin Carboxyhemoglobin O2 Delivery Device Liter Flow Critical Value Sodium 134 L Potassium 3.1 L Chloride 96 L Carbon Dioxide 23.8 Anion Gap 14 BUN 23 H Creatinine 1.60 H Estimated GFR 44 L Random Glucose 149 H Lactic Acid 5.8 H* Calcium 8.0 L Calcium Adj for Albumin Magnesium 2.0 Total Bilirubin 1.1 H AST 68 H ALT 74 Alkaline Phosphatase 172 H Troponin I Less than 0.02 L B-Natriuretic Peptide Total Protein 7.9 Albumin 2.2 L Lipase 109 Urine Color Urine Clarity Urine pH Ur Specific [place] Urine Protein Urine Glucose (UA) Urine Ketones Urine Occult Blood Urine Nitrate Urine Bilirubin Urine Urobilinogen Ur Leukocyte Esterase Urine RBC Urine WBC Ur Squamous Epith Cells Urine Bacteria Urine Mucus Micro UA Comment Ur Microscopic Review Urine Culture Comments 06/09/18 06/09/18 06/09/18 20:07 20:10 21:34 WBC RBC Hgb Hct MCV MCH MCHC RDW Plt Count MPV Neut % (Auto) Lymph % (Auto) [place] % (Auto) Eos % (Auto) Baso % (Auto) Neut # (Auto) Lymph # (Auto) [place] # (Auto) Eos # (Auto) Baso # (Auto) WBC Differential Differential Comment Puncture Site Left radial Patient Temperature 98.6 O2 Saturation 92 ABG pH 7.51 H* ABG pCO2 30 L ABG pO2 66 ABG HCO3 23 ABG O2 Content 17.4 ABG Base Excess 0.5 ABG Methemoglobin 0.6 Will Test Present Hemoglobin 13.5 Carboxyhemoglobin 1.4 O2 Delivery Device Nasal cannula Liter Flow 2.00 Critical Value Yes Sodium Potassium Chloride Carbon Dioxide Anion Gap BUN Creatinine Estimated GFR Random Glucose Lactic Acid Calcium Calcium Adj for Albumin Magnesium Total Bilirubin AST ALT Alkaline Phosphatase Troponin I B-Natriuretic Peptide 82 Total Protein Albumin Lipase Urine Color Cindy Urine Clarity Cloudy H Urine pH 5.0 Ur Specific [place] 1.026 Urine Protein 100 H Urine Glucose (UA) 50 Urine Ketones Negative Urine Occult Blood Small H Urine Nitrate Negative Urine Bilirubin Negative Urine Urobilinogen 0.2 Ur Leukocyte Esterase Negative Urine RBC 1 Urine WBC 7 H Ur Squamous Epith Cells 2 Urine Bacteria Rare H Urine Mucus Many H Micro UA Comment Culture not ind Ur Microscopic Review Not Reportable Urine Culture Comments Culture not ind 06/09/18 06/10/18 06/10/18 22:15 05:29 06:00 WBC 25.1 H D RBC 4.45 L Hgb 12.4 L Hct 36.7 L MCV 82.3 MCH 27.9 MCHC 33.9 RDW 17.8 H Plt Count 196 MPV 8.7 Neut % (Auto) 91.1 H Lymph % (Auto) 2.9 L [place] % (Auto) 5.8 Eos % (Auto) 0.0 Baso % (Auto) 0.2 Neut # (Auto) 22.9 H Lymph # (Auto) 0.7 L [place] # (Auto) 1.5 H Eos # (Auto) 0.0 Baso # (Auto) 0.0 WBC Differential . Differential Comment Auto diff final Puncture Site Patient Temperature O2 Saturation ABG pH ABG pCO2 ABG pO2 ABG HCO3 ABG O2 Content ABG Base Excess ABG Methemoglobin Will Test Hemoglobin Carboxyhemoglobin O2 Delivery Device Liter Flow Critical Value Sodium 141 Potassium 2.7 L* Chloride 103 Carbon Dioxide 28.6 Anion Gap 9 BUN 25 H Creatinine 1.45 H Estimated GFR 49 L Random Glucose 162 H Lactic Acid 2.1 H Calcium 7.2 L* D Calcium Adj for Albumin 9.0 Magnesium Total Bilirubin 1.2 H AST 71 H ALT 72 Alkaline Phosphatase 147 H Troponin I B-Natriuretic Peptide Total Protein 6.8 D Albumin 1.8 L Lipase Urine Color Urine Clarity Urine pH Ur Specific [place] Urine Protein Urine Glucose (UA) Urine Ketones Urine Occult Blood Urine Nitrate Urine Bilirubin Urine Urobilinogen Ur Leukocyte Esterase Urine RBC Urine WBC Ur Squamous Epith Cells Urine Bacteria Urine Mucus Micro UA Comment Ur Microscopic Review Urine Culture Comments Microbiology 06/09/18 20:00 Blood - Peripheral Aerobic Blood Culture - Preliminary Klebsiella pneumoniae 06/09/18 20:00 Blood - Peripheral Anaerobic Blood Culture - Preliminary gram negative rods 06/09/18 20:10 Blood - Peripheral Aerobic Blood Culture - Preliminary gram negative rods 06/09/18 20:10 Blood - Peripheral Anaerobic Blood Culture - Preliminary gram negative rods 06/09/18 20:47 Nasal Wash Influenza Types A,B Antigen - Final Negative for FLU A and B antigen Infection due to influenza A or B cannot be ruled out since the antigen present in the sample may be below the detection limit of the test. - Imaging Impressions Chest X-Ray 06/09/18 20:05 CONCLUSION: Bibasilar atelectasis and upper limits of normal heart size. Abdomen/Pelvis CT 06/09/18 21:21 CONCLUSION: 1. The gallbladder is markedly abnormal with a thickened wall and some surrounding inflammatory stranding. There are also low-density areas in the adjacent hepatic parenchyma presumably intrahepatic abscesses. Assessment and Plan - Assessment (1) Sepsis Code(s): A41.9 - Sepsis, unspecified organism Status: Acute (2) Cholecystitis Code(s): K81.9 - Cholecystitis, unspecified Status: Acute (3) Liver abscess Code(s): K75.0 - Abscess of liver Status: Acute - Plan 62-year-old white male admitted for sepsis secondary to cholecystitis. Sepsis Likely secondary to cholecystitis, continue antibiotics Blood cultures positive, will repeat to evaluate for clearance -Continue IV fluids, treat underlying issues below Bacteremia Likely secondary to cholecystitis, continue Zosyn and Flagyl Repeat cultures Suspected cholecystitis General surgery following, will proceed with percutaneous drainage for now -Pain control Possible liver abscess Manage as above for now Hypokalemia GI losses, replace orally and IV Recheck -Switching fluids normal saline plus KCl for now .
--- NOTE | 2018-06-10 13:47 | P.RAD ---
Post CT Procedure Prog Note - Procedure Information Procedure Date: 06/10/18 Supervising Radiologist: Mik Sneed MD Estimated blood loss (mL): 5 Anesthesia: Conscious Sedation - Plan of Activity Patient to Unit: PACU Patient condition: Good See PACS Report for procedural detail/treatment.
[2018-06-10] MEDS: Morphine Sulfate Inj 2 MG/ML Vial IV.PUSH PRN ×2 (15:04→19:56)
[2018-06-10] MEDS ORDERED: HYDROmorphone PF Inj 0.5 MG/0.5 ML Syringe IV.PUSH ONE (16:46)
--- NOTE | 2018-06-10 16:49 | CT ---
EXAM DATE: 06/10/2018 1:53 PM EST AGE/SEX: 62 years / Male INDICATIONS: Cholecystitis with liver abscess. CLINICAL DATA: This is the patient's initial encounter. Patient reports that signs and symptoms have been present for 1 day and indicates a pain score of 5/10. MEDICAL/SURGICAL HISTORY: Hypertension. None. COMPARISON: No prior exams available for comparison. SEDATION TIME (min): 40 BIOPSY SITE: perihepatic fluid MEDICATION(S): 1.5mg midazolam (Versed) IV 100mcg fentanyl (Sublimaze) IV DEVICE(S): 8 Fr Locking pigtail FLUID: Total volume of 80 of brown odorous fluid was removed. Fluid was sent to lab for ordered studies.. . . PROCEDURE : CT guided cholecystostomy drain placement Conscious sedation with continuous EKG and oximetry monitoring. EKG and oximetry remained stable throughout the procedure. The risks, benefits and alternatives to the procedure were explained and verbal and written consent w as obtained. Using automated exposure control and adjustment of the mA and/or kV according to patient size, radiation dose was kept as low as reasonably achievable to obtain optimal diagnostic quality i mages. The site was prepped in sterile fashion. Full sterile technique was used, including cap, ma sk, sterile gloves and gown and a large sterile sheet. Hand hygiene and 2% chlorhexidine and/or beta dine/alcohol prep was utilized per protocol for cutaneous antisepsis. The skin and subcutaneous tiss ues were infiltrated with local anesthetic solution. DICOM format image data is available electronic ally for review and comparison. Using CT guidance the prescribed site was localized. Drainage was performed using the prescribed cat heter. The patient tolerated the procedure well and there were no complications. The patient tolerated the procedure well and there were no complications. The patient was sent to post anesthesia recovery in s table condition. FINDINGS: The small abscess noted in the left lobe of the liver adjacent to the falciform ligament is no longer visualized following drainage of the gallbladder. Therefore, additional drainage was not performed. CONCLUSION: 1. Uncomplicated CT guided cholecystostomy drain placement. 2. Small potential abscess in the left lobe of the liver is no longer visualized following cholecyst ostomy drainage. Recommend close interval follow-up contrast enhanced CT examination for evaluation. Electronically signed by: Mik Sneed MD Board Certified Radiologist 06/10/2018 4:48 PM BEATRIZ Martinez
[2018-06-11] MEDS: Piperacil/Tazo 4.5 GM Premix 4.5 GM/100 ML BAG IV.SIG SCH ×5 (00:06→23:59)
[2018-06-11] MEDS: Morphine Sulfate Inj 2 MG/ML Vial IV.PUSH PRN ×5 (00:06→23:58)
[2018-06-11 07:25] LABS: Baso % (Auto) 0.3 % (0.0-2.0); Eos # (Auto) 0.1 th/mm3 (0.0-0.4); Eos % (Auto) 0.8 % (0.0-4.0); Hematocrit 35.7 % (39.0-51.0); Hemoglobin 12.1 gm/dL (13.0-17.0); Lymph # (Auto) 1.1 th/mm3 (1.0-4.8); Lymph % (Auto) 7.8 % (9.0-44.0); Mean Corpuscular HGB Conc 33.8 % (32.0-36.0); Mean Corpuscular Hemoglobin 27.8 pg (27.0-34.0); Mean Corpuscular Volume 82.3 fL (80.0-100.0); Mean Platelet Volume 8.7 fL (7.0-11.0); Mono # (Auto) 1.5 th/mm3 (0.0-0.9); Mono % (Auto) 10.4 % (0.0-8.0); Neut # (Auto) 11.7 th/mm3 (1.8-7.7); Neut % (Auto) 80.7 % (16.0-70.0); Platelet Count 204 th/mm3 (150-450); Red Blood Count 4.34 mil/mm3 (4.50-5.90); White Blood Count 14.4 th/mm3 (4.0-11.0)
[2018-06-11] MEDS: Senna/Docusate Sodium 8.6/50 MG Tablet PO SCH ×2 (08:22→23:24)
--- NOTE | 2018-06-11 09:21 | P.PNGS ---
Subjective Patient reports: feels better (pain at drain site, +fever) Physical Exam Vital signs: Vital Signs 06/10/18 13:56 06/10/18 14:00 06/10/18 14:15 Temperature 99.3 F Pulse Rate 99 H 101 H 100 H Respiratory Rate 20 30 H 33 H Blood Pressure 114/64 117/65 110/58 L Pulse Oximetry 92 L 92 L 97 06/10/18 14:30 06/10/18 14:31 06/10/18 15:01 Temperature 102 F H 101.8 F H 100.5 F H Pulse Rate 98 H 97 H 92 H Respiratory Rate 31 H 18 17 Blood Pressure 116/61 124/63 128/58 L Pulse Oximetry 97 95 95 06/10/18 20:00 06/11/18 00:00 Temperature 97.4 F L 97.7 F Pulse Rate 83 84 Respiratory Rate 20 20 Blood Pressure 116/63 116/59 L Pulse Oximetry 94 L 98 Intake & Output 06/10/18 06/11/18 06/11/18 18:59 06:59 18:59 Intake Total 1140 / 1140 2080 / 2080 100 / 100 Output Total 145 / 145 150 / 150 Balance 995 / 995 1930 / 1930 100 / 100 Weight 136.6 kg Intake: IV 500 / 500 1300 / 1300 100 / 100 NS + KCl 20 mEq Inj 1,000 ML @ 1000 / 1000 84 mls/hr IV.CONT .[id number] [facility] Rx#:[id number] NS Inj 1,000 ML @ 100 mls/hr IV 100 / 100 .CONT .Q10H [facility] Rx#:[id number] Zosyn 4.5 GM Premix 4.5 gm In 200 / 200 200 / 200 100 / 100 100 ml @ 200 mls/hr IV.SIG Q6H [facility] Rx#:[id number] Flagyl 500 MG Inj 100 ML @ 100 200 / 200 100 / 100 mls/hr IV.SIG Q8H [facility] Rx#: [id number] Oral 640 / 640 780 / 780 Output: Urine 0 / 0 Wound Drainage 145 / 145 150 / 150 Right Lateral Abdomen 145 / 145 150 / 150 Other: # Voids 5 2 Date of Last Bowel Movement 06/10/18 06/10/18 # Bowel Movements 2 - Routine Respiratory Exam Present: CTA bilaterally - Routine Cardiovascular Exam Present: RRR - Routine Abdominal Exam Present: soft (ttp ruq, no rebound) Results - Labs 06/11/18 06:35 06/11/18 06:35 Laboratory Results - last 24 hr 06/10/18 06/11/18 06/11/18 16:40 06:35 06:35 WBC 14.4 H RBC 4.34 L Hgb 12.1 L Hct 35.7 L MCV 82.3 MCH 27.8 MCHC 33.8 RDW 18.0 H Plt Count 204 MPV 8.7 Neut % (Auto) 80.7 H Lymph % (Auto) 7.8 L [place] % (Auto) 10.4 H Eos % (Auto) 0.8 Baso % (Auto) 0.3 Neut # (Auto) 11.7 H Lymph # (Auto) 1.1 [place] # (Auto) 1.5 H Eos # (Auto) 0.1 Baso # (Auto) 0.0 WBC Differential . Differential Comment Auto diff final Potassium 2.9 L* 3.2 L - Imaging Imaging: ITS Impressions Chest X-Ray 06/09/18 20:05 CONCLUSION: Bibasilar atelectasis and upper limits of normal heart size. Abdomen/Pelvis CT 06/09/18 21:21 CONCLUSION: 1. The gallbladder is markedly abnormal with a thickened wall and some surrounding inflammatory stranding. There are also low-density areas in the adjacent hepatic parenchyma presumably intrahepatic abscesses. Abscess Drainage CT 06/10/18 00:00 CONCLUSION: 1. Uncomplicated CT guided cholecystostomy drain placement. 2. Small potential abscess in the left lobe of the liver is no longer visualized following cholecystostomy drainage. Recommend close interval follow- up contrast enhanced CT examination for evaluation. Assessment and Plan - Assessment (1) Liver abscess Code(s): K75.0 - Abscess of liver Status: Acute (2) Cholecystitis Code(s): K81.9 - Cholecystitis, unspecified Status: Acute - Plan acute cholecystitis liver abscess s/p drain PLAN Abx consider id if continues to spike, +blood cx await sensitivities ir drain to gravity ambulate no surgical intervention at this time will continue medical mgnt
--- NOTE | 2018-06-11 17:22 | P.PNIM ---
Subjective Interval history: Nursing denies any acute changes overnight. Patient himself says he is doing okay. Denies nausea vomiting. Physical Exam Vital signs: Vital Signs 06/10/18 20:00 06/11/18 00:00 06/11/18 08:00 Temperature 97.4 F L 97.7 F 97.9 F Pulse Rate 83 84 85 Respiratory Rate 20 20 17 Blood Pressure 116/63 116/59 L 154/74 H Pulse Oximetry 94 L 98 95 06/11/18 12:00 Temperature 97.8 F Pulse Rate 81 Respiratory Rate 19 Blood Pressure 134/79 Pulse Oximetry 96 Intake & Output 06/10/18 06/11/18 06/11/18 18:59 06:59 18:59 Intake Total 1140 / 1140 2080 / 2080 1300 / 1300 Output Total 145 / 145 150 / 150 Balance 995 / 995 1930 / 1930 1300 / 1300 Weight 136.6 kg Intake: IV 500 / 500 1300 / 1300 1300 / 1300 NS + KCl 20 mEq Inj 1,000 ML @ 1000 / 1000 1000 / 1000 84 mls/hr IV.CONT .[id number] [facility] Rx#:[id number] NS Inj 1,000 ML @ 100 mls/hr IV 100 / 100 .CONT .Q10H [facility] Rx#:[id number] Zosyn 4.5 GM Premix 4.5 gm In 200 / 200 200 / 200 200 / 200 100 ml @ 200 mls/hr IV.SIG Q6H [facility] Rx#:[id number] Flagyl 500 MG Inj 100 ML @ 100 200 / 200 100 / 100 100 / 100 mls/hr IV.SIG Q8H [facility] Rx#: [id number] Oral 640 / 640 780 / 780 Output: Urine 0 / 0 Wound Drainage 145 / 145 150 / 150 Right Lateral Abdomen 145 / 145 150 / 150 Other: # Voids 5 2 Date of Last Bowel Movement 06/10/18 06/10/18 # Bowel Movements 2 Narrative: Percutaneous drain to gallbladder in place, abdomen soft, nontender, nondistended Clear lungs bilaterally, unlabored breathing Sleeping, easily awoken, no acute distress Results - Labs CBC & Chem 7: 06/11/18 06:35 06/11/18 06:35 Laboratory Results - last 24 hr 06/10/18 06/11/18 06/11/18 16:40 06:35 06:35 WBC 14.4 H RBC 4.34 L Hgb 12.1 L Hct 35.7 L MCV 82.3 MCH 27.8 MCHC 33.8 RDW 18.0 H Plt Count 204 MPV 8.7 Neut % (Auto) 80.7 H Lymph % (Auto) 7.8 L [place] % (Auto) 10.4 H Eos % (Auto) 0.8 Baso % (Auto) 0.3 Neut # (Auto) 11.7 H Lymph # (Auto) 1.1 [place] # (Auto) 1.5 H Eos # (Auto) 0.1 Baso # (Auto) 0.0 WBC Differential . Differential Comment Auto diff final Potassium 2.9 L* 3.2 L Creatinine Estimated GFR 06/11/18 06:35 WBC RBC Hgb Hct MCV MCH MCHC RDW Plt Count MPV Neut % (Auto) Lymph % (Auto) [place] % (Auto) Eos % (Auto) Baso % (Auto) Neut # (Auto) Lymph # (Auto) [place] # (Auto) Eos # (Auto) Baso # (Auto) WBC Differential Differential Comment Potassium Creatinine 1.16 Estimated GFR 64 L Microbiology 06/10/18 13:45 Fluid - Gallbladder Gram Stain - Final 06/10/18 13:45 Fluid - Gallbladder Body Fluid Culture - Preliminary gram negative rods 06/09/18 20:10 Blood - Peripheral Aerobic Blood Culture - Preliminary Klebsiella pneumoniae 06/09/18 20:10 Blood - Peripheral Anaerobic Blood Culture - Preliminary Klebsiella pneumoniae 06/09/18 20:00 Blood - Peripheral Aerobic Blood Culture - Preliminary Klebsiella pneumoniae 06/09/18 20:00 Blood - Peripheral Anaerobic Blood Culture - Preliminary Klebsiella pneumoniae 06/10/18 16:35 Blood - Peripheral Aerobic Blood Culture - Preliminary No growth in 1 day 06/10/18 16:35 Blood - Peripheral Anaerobic Blood Culture - Preliminary No growth in 1 day 06/10/18 16:40 Blood - Peripheral Aerobic Blood Culture - Preliminary No growth in 1 day 06/10/18 16:40 Blood - Peripheral Anaerobic Blood Culture - Preliminary No growth in 1 day Assessment and Plan - Assessment (1) Sepsis Code(s): A41.9 - Sepsis, unspecified organism Status: Acute (2) Cholecystitis Code(s): K81.9 - Cholecystitis, unspecified Status: Acute (3) Liver abscess Code(s): K75.0 - Abscess of liver Status: Acute - Plan 62-year-old white male admitted for sepsis secondary to suspected cholecystitis , found to also have bacteremia. now s/p IR placed per drain. Sepsis Likely secondary to cholecystitis, ? liver abscess and bacteremia Treat underlying issues below suspected Cholecystitis Status post percutaneous drain per general surgery -Zosyn and Flagyl Possible liver abscess Manage as above for now per gen surg Klebsiella pneumonia bacteremia -Continue antibiotics, repeat cultures pending, consulting ID Hypokalemia Improving, recheck, replace as warranted .
--- NOTE | 2018-06-12 00:36 | ECG ---
Date Performed: 06/09/2018 Time Performed: 20:13:52 PTAGE: 62 years EKG: SINUS TACHYCARDIA NONSPECIFIC ST & T-WAVE ABNORMALITY BASELINE ARTIFACT ABNORMAL RHYTHM ECG NO PREVIOUS TRACING DOCTOR: Pilo Mcghee Interpretating Date/Time 06/12/2018 00:35:40
[2018-06-12] MEDS: Morphine Sulfate Inj 2 MG/ML Vial IV.PUSH PRN ×3 (04:04→12:58)
[2018-06-12] MEDS: Piperacil/Tazo 4.5 GM Premix 4.5 GM/100 ML BAG IV.SIG SCH ×2 (05:19→12:13)
--- NOTE | 2018-06-12 06:30 | P.PNGS ---
Subjective Patient reports: no new complaints, feels better, flatus, bowel movement Physical Exam Vital signs: Vital Signs 06/11/18 08:00 06/11/18 12:00 06/11/18 16:00 Temperature 97.9 F 97.8 F 98.5 F Pulse Rate 85 81 81 Respiratory Rate 17 19 18 Blood Pressure 154/74 H 134/79 146/80 H Pulse Oximetry 95 96 96 06/11/18 20:00 06/11/18 23:24 06/11/18 23:33 Temperature 97.9 F 98.4 F Pulse Rate 84 80 Respiratory Rate 18 18 18 Blood Pressure 149/78 H 138/73 Pulse Oximetry 94 L 97 06/12/18 00:02 06/12/18 05:04 Temperature Pulse Rate Respiratory Rate 20 20 Blood Pressure Pulse Oximetry Intake & Output 06/11/18 06/11/18 06/12/18 06:59 18:59 06:59 Intake Total 2080 / 2080 2700 / 2700 880 / 880 Output Total 150 / 150 240 / 240 320 / 320 Balance 1930 / 1930 2460 / 2460 560 / 560 Weight 136.6 kg 136.6 kg Intake: IV 1300 / 1300 1500 / 1500 200 / 200 NS + KCl 20 mEq Inj 1,000 ML @ 1000 / 1000 1000 / 1000 84 mls/hr IV.CONT .[id number] [facility] Rx#:[id number] Zosyn 4.5 GM Premix 4.5 gm In 200 / 200 300 / 300 100 / 100 100 ml @ 200 mls/hr IV.SIG Q6H [facility] Rx#:[id number] Flagyl 500 MG Inj 100 ML @ 100 100 / 100 200 / 200 100 / 100 mls/hr IV.SIG Q8H [facility] Rx#: [id number] Oral 780 / 780 1200 / 1200 680 / 680 Output: Wound Drainage 150 / 150 240 / 240 320 / 320 Right Lateral Abdomen 150 / 150 240 / 240 320 / 320 Other: # Voids 2 4 3 Date of Last Bowel Movement 06/10/18 # Bowel Movements 1 - Routine Abdominal Exam Present: soft (mild ttp, ir drain in place c/d/i) Results - Labs 06/11/18 06:35 06/11/18 06:35 Laboratory Results - last 24 hr 06/11/18 06/11/18 06/11/18 06:35 06:35 06:35 WBC 14.4 H RBC 4.34 L Hgb 12.1 L Hct 35.7 L MCV 82.3 MCH 27.8 MCHC 33.8 RDW 18.0 H Plt Count 204 MPV 8.7 Neut % (Auto) 80.7 H Lymph % (Auto) 7.8 L [place] % (Auto) 10.4 H Eos % (Auto) 0.8 Baso % (Auto) 0.3 Neut # (Auto) 11.7 H Lymph # (Auto) 1.1 [place] # (Auto) 1.5 H Eos # (Auto) 0.1 Baso # (Auto) 0.0 WBC Differential . Differential Comment Auto diff final Potassium 3.2 L Creatinine 1.16 Estimated GFR 64 L - Imaging Imaging: ITS Impressions Chest X-Ray 06/09/18 20:05 CONCLUSION: Bibasilar atelectasis and upper limits of normal heart size. Abdomen/Pelvis CT 06/09/18 21:21 CONCLUSION: 1. The gallbladder is markedly abnormal with a thickened wall and some surrounding inflammatory stranding. There are also low-density areas in the adjacent hepatic parenchyma presumably intrahepatic abscesses. Abscess Drainage CT 06/10/18 00:00 CONCLUSION: 1. Uncomplicated CT guided cholecystostomy drain placement. 2. Small potential abscess in the left lobe of the liver is no longer visualized following cholecystostomy drainage. Recommend close interval follow- up contrast enhanced CT examination for evaluation. Assessment and Plan - Assessment (1) Liver abscess Code(s): K75.0 - Abscess of liver Status: Acute (2) Cholecystitis Code(s): K81.9 - Cholecystitis, unspecified Status: Acute - Plan acute cholecystitis liver abscess s/p drain PLAN Abx, +blood cx await sensitivities ir drain to gravity labs pending ambulate no surgical intervention at this time will continue medical mgnt, drain mgnt recheck CTa/p to reassess liver abscess, discussed with Dr. Ayala IR
[2018-06-12 07:12] LABS: Baso # (Auto) 0.1 th/mm3 (0.0-0.2); Baso % (Auto) 0.6 % (0.0-2.0); Eos # (Auto) 0.2 th/mm3 (0.0-0.4); Eos % (Auto) 1.3 % (0.0-4.0); Hematocrit 37.6 % (39.0-51.0); Hemoglobin 12.6 gm/dL (13.0-17.0); Lymph # (Auto) 1.4 th/mm3 (1.0-4.8); Lymph % (Auto) 10.8 % (9.0-44.0); Mean Corpuscular HGB Conc 33.5 % (32.0-36.0); Mean Corpuscular Hemoglobin 27.5 pg (27.0-34.0); Mean Corpuscular Volume 81.9 fL (80.0-100.0); Mean Platelet Volume 8.6 fL (7.0-11.0); Mono # (Auto) 1.1 th/mm3 (0.0-0.9); Mono % (Auto) 8.5 % (0.0-8.0); Neut # (Auto) 10.1 th/mm3 (1.8-7.7); Neut % (Auto) 78.8 % (16.0-70.0); Platelet Count 291 th/mm3 (150-450); Red Blood Count 4.59 mil/mm3 (4.50-5.90); Red Cell Distribution Width 17.9 % (11.6-17.2); White Blood Count 12.9 th/mm3 (4.0-11.0)
[2018-06-12 07:42] LABS: Alanine Aminotransferase 39 U/L (12-78); Anion Gap 8 meq/L (5-15); Aspartate Aminotransferase 25 U/L (15-37); Blood Urea Nitrogen 15 mg/dL (7-18); Calcium 7.7 mg/dL (8.5-10.1); Carbon Dioxide 29.4 meq/L (21.0-32.0); Chloride 98 meq/L (98-107); Glomerular Filtration Rate 66 mL/min (>89); Glucose,Random 114 mg/dL (74-106); Potassium 3.1 meq/L (3.5-5.1); Sodium 135 meq/L (136-145)
[2018-06-12 07:44] LABS: Alkaline Phosphatase 145 U/L (45-117); Total Protein 7.5 g/dL (6.4-8.2)
--- NOTE | 2018-06-12 08:17 | CT ---
EXAM DATE: 06/12/2018 8:05 AM EST AGE/SEX: 62 years / Male INDICATIONS: Evaluate liver abscess CLINICAL DATA: This is the patient's subsequent encounter. Patient reports that signs and symptoms h ave been present for 2 days and indicates a pain score of 2/10. MEDICAL/SURGICAL HISTORY: Hypertension. None. ORAL CONTRAST: No oral contrast ingested. RADIATION DOSE: 26.96 CTDI (mGy) ; Patient body habitus [place] [facility] [place]/2018. . TECHNIQUE: Multiple contiguous axial images were obtained through the abdomen and pelvis following b olus infusion of 87 ml Omnipaque 350 (iohexol) nonionic water-soluble contrast as a single exam dos e. No oral contrast ingested. Using automated exposure control and adjustment of the mA and/or kV ac cording to patient size, radiation dose was kept as low as reasonably achievable to obtain optimal di agnostic quality images. DICOM format image data is available electronically for review and comparis on. FINDINGS: Lower Lungs: The visualized lower lungs are clear. Liver:. A cholecystostomy catheter is noted within the gallbladder which remains diffusely thickened but nondistended. Pericholecystic fluid is noted. There has been slight interval decrease in the size of the rim-enhancing area of low attenuation within the left lobe of the liver adjacent to the gallb ladder fossa which now measures 3.7 cm. This likely represents improving liver abscess. Fatty infiltr ation of the liver is stable. No biliary ductal dilatation is noted. Spleen: Spleen is enlarged. Pancreas: Unremarkable without mass or calcification. Kidneys: Normal in size and shape. No evidence of mass or hydronephrosis. There is an 11 mm probable cyst within the midpole the right kidney. Degenerative changes are noted throughout the thoracolumba r spine. Adrenal Glands: Unremarkable. Aorta: The aorta and proximal iliac vessels are grossly unremarkable without aneurysmal dilation. Bowel/Mesentery: Uncomplicated colonic diverticulosis is noted. No acute diverticulitis is noted. Th e appendix is normal. Abdominal Wall: Intact. Retroperitoneum: No evidence of adenopathy in the retrocrural, para-aortic, or deep pelvic regions. Bladder: Contours are smooth. Reproductive Organs: No abnormal masses or calcifications seen. Inguinal: The inguinal region is unremarkable without evidence of adenopathy. Bony Structures: Unremarkable. CONCLUSION: 1. Slight interval decrease in the size of the rim-enhancing area of low attenuation within the left lobe of the liver adjacent to the gallbladder fossa which now measures 3.7 cm. This likely represent s improving liver abscess. 2. Nondistended thick-walled gallbladder with minimal pericholecystic fluid. A cholecystostomy brandee ter is noted within the lumen of the gallbladder. 3. Fatty infiltration liver. 4. Mild splenomegaly. 5. 11 mm right renal cyst. 6. Uncomplicated colonic diverticulosis. Electronically signed by: Manuel Tran MD Board Certified Radiologist 06/12/2018 8:15 AM EST
[2018-06-12] MEDS: Senna/Docusate Sodium 8.6/50 MG Tablet PO SCH ×2 (09:47→20:30)
--- NOTE | 2018-06-12 15:39 | P.CONID ---
History of Present Illness Service: Infectious Disease Consult date: 06/12/18 Requesting Physician: Willie Toure Reason for Consult: Evaluation and Mment of E.coli bacteremia,liver abscesses. Primary Care Provider: Nestor William MD History of Present Illness: is a 62 y/o Male with PMHx of HTN who was brought to the ER by EMS for complaints of generalized malaise, abdominal pain, nausea/vomiting and SOB. Upon EMS arrival, pt noted to be febrile w/ Temp 102.0. No h/o similar symptoms. Abdominal pain is epigastric, intermittent, sharp, 8/10, non- radiating. On arrival, BP 184/93, HR 128, O2 sat 95% on RA, Temp 102.8. CBC unremarkable. Creatinine 1.60, no previous labs for comparison. Lactic Acid 5.8, repeat 2.1. Troponin negative. Lipase normal. CXR with no significant findings. Abdomen/Pelvis markedly abnormal gallbladder with thickened wall and surrounding inflammatory stranding, low density areas in the adjacent hepatic parenchyma presumably intrahepatic abscesses. Dr. aYncey consulted by ER physician, will evaluate. S/p Rocephin/Zithro in ER. Blood cultures positive for Kleb pneumo. Patient underwent an IR guided cholecystostomy placement and fluid grew Kleb pneumo for acute cholecystitis. CT also shows liver abscesses on first CT followed by another CT showing decrease in size of abscesses. ID consulted for evaluation and Mment of all the above ID problems. Review of Systems All other systems reviewed negative except as stated in HPI PMFSH - History History Provided By: Patient - Medical History Medical History: Medical History (Last Updated 06/09/18 @ 20:23 by Sherman Caceres MD) Borderline diabetes HTN (hypertension) - Tobacco History Second Hand Smoke Exposure: Yes Tobacco Use In Past 30 Days: No Smoking Status: Never smoker - Alcohol History How Often Do You Have a Drink Containing Alcohol: Never - Substance Use History Substance History: No History of Abuse - Immunization History Tetanus Immunization: <5 Years Hx Influenza Vaccine This Season: No Medications and Allergies Active Medications: Active Medications Acetaminophen (Tylenol) 650 mg PO Q4H PRN PRN Reason: Temp > 100.4 Last Admin: 06/10/18 15:10 Dose: 650 mg Al Hydroxide/Mg Hydroxide (Milk Of Magnesia Liq) 30 ml PO Q12H PRN PRN Reason: Mild Constipation Bisacodyl (Dulcolax Supp) 10 mg RECTAL DAILY PRN PRN Reason: SEVERE CONSITIPATION Piperacillin/Tazobactam/Dextrose (Zosyn 4.5 Gm Premix) 4.5 gm in 100 mls @ 200 mls/hr IV.SIG Q6H [facility] Last Infusion: 06/12/18 13:27 Dose: Infused Metronidazole/Sodium Chloride (Flagyl 500 Mg Inj) 100 mls @ 100 mls/hr IV.SIG Q8H [facility] Last Infusion: 06/12/18 11:19 Dose: Infused Potassium Chloride/Sodium Chloride (Ns + Kcl 20 Meq Inj) 1,000 mls @ 84 mls/hr IV.CONT .[id number] [facility] Last Admin: 06/12/18 05:19 Dose: 84 mls/hr Lactulose (Lactulose Liq) 30 ml PO DAILY PRN PRN Reason: SEVERE CONSITIPATION Morphine Sulfate (Morphine Inj) 2 mg IV.PUSH Q4H PRN PRN Reason: PAIN SCALE 6 TO 10 Last Admin: 06/12/18 12:58 Dose: 2 mg Ondansetron HCl (Zofran Inj) 4 mg IV.PUSH Q6H PRN PRN Reason: NAUSEA OR VOMITING Senna/Docusate Sodium (Randi-Colace) 1 tab PO BID [facility] Last Admin: 06/12/18 09:47 Dose: Not Given Sennosides (Senokot) 17.2 mg PO Q12H PRN PRN Reason: Moderate Constipation Sodium Chloride (Ns Flush) 2 ml IV.FLUSH BID [facility] Last Admin: 06/12/18 09:47 Dose: 2 ml Sodium Chloride (Ns Flush) 2 ml IV.FLUSH PRN PRN PRN Reason: FLUSH AFTER USING IV ACCESS Allergies Allergy/AdvReac Type Severity Reaction Status Date / Time No Known Allergies Allergy Weakness Uncoded 06/09/18 20:13 Home Medications Medication Instructions Recorded Confirmed Type No Known Home Medications 06/09/18 06/09/18 History Exam Vital signs: Vital Signs 06/11/18 16:00 06/11/18 20:00 06/11/18 23:24 Temperature 98.5 F 97.9 F Pulse Rate 81 84 Respiratory Rate 18 18 18 Blood Pressure 146/80 H 149/78 H Pulse Oximetry 96 94 L 12/23/18 23:33 06/12/18 00:02 06/12/18 05:04 Temperature 98.4 F Pulse Rate 80 Respiratory Rate 18 20 20 Blood Pressure 138/73 Pulse Oximetry 97 06/12/18 08:00 06/12/18 08:35 06/12/18 12:00 Temperature 97.3 F L 98.3 F Pulse Rate 80 72 Respiratory Rate 18 20 18 Blood Pressure 160/78 H 143/80 H Pulse Oximetry 94 L 95 Intake & Output 06/11/18 06/12/18 06/12/18 18:59 06:59 18:59 Intake Total 2700 / 2700 880 / 880 300 / 300 Output Total 240 / 240 320 / 320 Balance 2460 / 2460 560 / 560 300 / 300 Weight 136.6 kg Intake: IV 1500 / 1500 200 / 200 300 / 300 NS + KCl 20 mEq Inj 1,000 ML @ 1000 / 1000 84 mls/hr IV.CONT .[id number] [facility] Rx#:[id number] Zosyn 4.5 GM Premix 4.5 gm In 300 / 300 100 / 100 200 / 200 100 ml @ 200 mls/hr IV.SIG Q6H [facility] Rx#:[id number] Flagyl 500 MG Inj 100 ML @ 100 200 / 200 100 / 100 100 / 100 mls/hr IV.SIG Q8H [facility] Rx#: [id number] Oral 1200 / 1200 680 / 680 Output: Wound Drainage 240 / 240 320 / 320 Right Lateral Abdomen 240 / 240 320 / 320 Other: # Voids 4 3 # Bowel Movements 1 1 Narrative: GENERAL: Well-nourished well-developed, not in acute distress. Obese. SKIN: Cool and dry, no generalized rash HEAD: Atraumatic. Normocephalic. No temporal or scalp tenderness. EYES: Pupils equal round and reactive. Scleral icterus. No injection or drainage. No petechia ENT: Nothing abnormal detected NECK: Trachea midline. Supple, nontender, no meningeal signs. CARDIOVASCULAR: HS audible. RESPIRATORY: Clear to auscultation bilaterally. GASTROINTESTINAL: Abdomen soft nontender, right upper quadrant drain in place. MUSCULOSKELETAL: Extremities without clubbing, cyanosis. NEUROLOGICAL: Alert oriented 3. Nonfocal. Psych cooperative IV line sites ok. Results - Labs CBC & Chem 7: 06/12/18 06:39 06/12/18 06:39 Labs: Laboratory Results - last 24 hr 06/12/18 06/12/18 06/12/18 06:39 06:39 06:39 WBC 12.9 H RBC 4.59 Hgb 12.6 L Hct 37.6 L MCV 81.9 MCH 27.5 MCHC 33.5 RDW 17.9 H Plt Count 291 D MPV 8.6 Neut % (Auto) 78.8 H Lymph % (Auto) 10.8 [place] % (Auto) 8.5 H Eos % (Auto) 1.3 Baso % (Auto) 0.6 Neut # (Auto) 10.1 H Lymph # (Auto) 1.4 [place] # (Auto) 1.1 H Eos # (Auto) 0.2 Baso # (Auto) 0.1 WBC Differential . Differential Comment Auto diff final Sodium 135 L Potassium 3.1 L Chloride 98 Carbon Dioxide 29.4 Anion Gap 8 BUN 15 Creatinine 1.13 Estimated GFR 66 L Random Glucose 114 H Calcium 7.7 L Magnesium 2.3 Total Bilirubin 0.8 AST 25 ALT 39 Alkaline Phosphatase 145 H Total Protein 7.5 D Albumin 2.0 L - Imaging Impressions Abdomen/Pelvis CT 06/12/18 00:00 CONCLUSION: 1. Slight interval decrease in the size of the rim-enhancing area of low attenuation within the left lobe of the liver adjacent to the gallbladder fossa which now measures 3.7 cm. This likely represents improving liver abscess. 2. Nondistended thick-walled gallbladder with minimal pericholecystic fluid. A cholecystostomy catheter is noted within the lumen of the gallbladder. 3. Fatty infiltration liver. 4. Mild splenomegaly. 5. 11 mm right renal cyst. 6. Uncomplicated colonic diverticulosis. Assessment and Plan - Plan Sepsis Kleb pneumo bacteremia: source GB Acute cholecystitis now with C'stomy tube. Liver abscess. Obesity BMI 43.2 kg/m2 Recs: DC IV antibiotics Switch to oral Augmentin. If tolerates oral augmentin would recommend 4 weeks oral augmentin on discharge for liver abscesses and transient bacteremia. Patient insists on being discharged in am and prefers oral antibiotics. Recommend outpatient follow up with General surgery. Consider repeat US GB and Liver as outpatient. Case management consult for arranging oral antibiotics on discharge. dw patient to come back to hospital if recurrence of symptoms such as fevers, chills, night sweats, abdominal pain, weight loss or any such new symptoms as these could be signs of non response or worsening GB infection. dw above plan Will sign off please call back if any change in clinical condition or questions.
--- NOTE | 2018-06-12 15:43 | P.PNIM ---
Subjective Interval history: Nursing denies any acute changes overnight. Patient himself says his pain is much more bearable today. Tolerating p.o. intake. Physical Exam Vital signs: Vital Signs 06/11/18 16:00 06/11/18 20:00 06/11/18 23:24 Temperature 98.5 F 97.9 F Pulse Rate 81 84 Respiratory Rate 18 18 18 Blood Pressure 146/80 H 149/78 H Pulse Oximetry 96 94 L 06/11/18 23:33 06/12/18 00:02 06/12/18 05:04 Temperature 98.4 F Pulse Rate 80 Respiratory Rate 18 20 20 Blood Pressure 138/73 Pulse Oximetry 97 06/12/18 08:00 06/12/18 08:35 06/12/18 12:00 Temperature 97.3 F L 98.3 F Pulse Rate 80 72 Respiratory Rate 18 20 18 Blood Pressure 160/78 H 143/80 H Pulse Oximetry 94 L 95 Intake & Output 06/11/18 06/12/18 06/12/18 18:59 06:59 18:59 Intake Total 2700 / 2700 880 / 880 300 / 300 Output Total 240 / 240 320 / 320 Balance 2460 / 2460 560 / 560 300 / 300 Weight 136.6 kg Intake: IV 1500 / 1500 200 / 200 300 / 300 NS + KCl 20 mEq Inj 1,000 ML @ 1000 / 1000 84 mls/hr IV.CONT .[id number] [facility] Rx#:[id number] Zosyn 4.5 GM Premix 4.5 gm In 300 / 300 100 / 100 200 / 200 100 ml @ 200 mls/hr IV.SIG Q6H [facility] Rx#:[id number] Flagyl 500 MG Inj 100 ML @ 100 200 / 200 100 / 100 100 / 100 mls/hr IV.SIG Q8H [facility] Rx#: [id number] Oral 1200 / 1200 680 / 680 Output: Wound Drainage 240 / 240 320 / 320 Right Lateral Abdomen 240 / 240 320 / 320 Other: # Voids 4 3 # Bowel Movements 1 1 Narrative: Percutaneous biliary drain in place, has dark bile draining Drain insertion site appears unremarkable, minimal tenderness to palpation around the site with no erythema or induration otherwise Clear lungs bilaterally, labored breathing Heart sounds regular rate and rhythm Sitting up in chair, no acute distress Results - Labs CBC & Chem 7: 06/12/18 06:39 06/12/18 06:39 Laboratory Results - last 24 hr 06/12/18 06/12/18 06/12/18 06:39 06:39 06:39 WBC 12.9 H RBC 4.59 Hgb 12.6 L Hct 37.6 L MCV 81.9 MCH 27.5 MCHC 33.5 RDW 17.9 H Plt Count 291 D MPV 8.6 Neut % (Auto) 78.8 H Lymph % (Auto) 10.8 [place] % (Auto) 8.5 H Eos % (Auto) 1.3 Baso % (Auto) 0.6 Neut # (Auto) 10.1 H Lymph # (Auto) 1.4 [place] # (Auto) 1.1 H Eos # (Auto) 0.2 Baso # (Auto) 0.1 WBC Differential . Differential Comment Auto diff final Sodium 135 L Potassium 3.1 L Chloride 98 Carbon Dioxide 29.4 Anion Gap 8 BUN 15 Creatinine 1.13 Estimated GFR 66 L Random Glucose 114 H Calcium 7.7 L Magnesium 2.3 Total Bilirubin 0.8 AST 25 ALT 39 Alkaline Phosphatase 145 H Total Protein 7.5 D Albumin 2.0 L Microbiology 06/10/18 16:35 Blood - Peripheral Aerobic Blood Culture - Preliminary No growth in 2 days 06/10/18 16:35 Blood - Peripheral Anaerobic Blood Culture - Preliminary No growth in 2 days 06/10/18 16:40 Blood - Peripheral Aerobic Blood Culture - Preliminary No growth in 2 days 06/10/18 16:40 Blood - Peripheral Anaerobic Blood Culture - Preliminary No growth in 2 days 06/10/18 13:45 Fluid - Gallbladder Gram Stain - Final 06/10/18 13:45 Fluid - Gallbladder Body Fluid Culture - Final Klebsiella pneumoniae 06/09/18 20:10 Blood - Peripheral Aerobic Blood Culture - Final Klebsiella pneumoniae 06/09/18 20:10 Blood - Peripheral Anaerobic Blood Culture - Final Klebsiella pneumoniae 06/09/18 20:00 Blood - Peripheral Aerobic Blood Culture - Final Klebsiella pneumoniae 06/09/18 20:00 Blood - Peripheral Anaerobic Blood Culture - Final Klebsiella pneumoniae - Imaging Impressions Abdomen/Pelvis CT 06/12/18 00:00 CONCLUSION: 1. Slight interval decrease in the size of the rim-enhancing area of low attenuation within the left lobe of the liver adjacent to the gallbladder fossa which now measures 3.7 cm. This likely represents improving liver abscess. 2. Nondistended thick-walled gallbladder with minimal pericholecystic fluid. A cholecystostomy catheter is noted within the lumen of the gallbladder. 3. Fatty infiltration liver. 4. Mild splenomegaly. 5. 11 mm right renal cyst. 6. Uncomplicated colonic diverticulosis. Assessment and Plan - Assessment (1) Sepsis Code(s): A41.9 - Sepsis, unspecified organism Status: Acute (2) Cholecystitis Code(s): K81.9 - Cholecystitis, unspecified Status: Acute (3) Liver abscess Code(s): K75.0 - Abscess of liver Status: Acute - Plan 62-year-old white male admitted for sepsis secondary to suspected cholecystitis , found to also have bacteremia. now s/p IR placed per drain. Sepsis secondary to cholecystitis and liver abscess Sepsis element resolved suspected Cholecystitis Status post percutaneous drain per general surgery -Zosyn and Flagyl, will obtain EKG to reevaluate QTC Possible liver abscess Manage as above for now per gen surg ID following Klebsiella pneumonia bacteremia -Continue antibiotics, repeat cultures are negative, ID following, patient may or may not need long-term antibiotics based upon definitive diagnosis of a possible liver abscess Hypokalemia Improving, recheck, replace as warranted -Switching over to p.o. replacement, recheck today and in a.m. .
[2018-06-12 17:46] LABS: Calcium 7.4 mg/dL (8.5-10.1); Carbon Dioxide 29.1 meq/L (21.0-32.0)
[2018-06-12 17:52] LABS: Albumin 1.8 g/dL (3.4-5.0); Calcium-Albumin Corrected 9.2 mg/dL (8.5-10.1)
[2018-06-12] MEDS: Amoxicillin/Clavulanate 875/125 MG Tablet PO SCH (20:29)
[2018-06-13 07:44] LABS: Calcium 7.7 mg/dL (8.5-10.1); Carbon Dioxide 29.4 meq/L (21.0-32.0); Potassium 3.4 meq/L (3.5-5.1)
[2018-06-13] MEDS: Amoxicillin/Clavulanate 875/125 MG Tablet PO SCH (10:00)
[2018-06-13] MEDS: Senna/Docusate Sodium 8.6/50 MG Tablet PO SCH (10:04)
--- NOTE | 2018-06-13 12:03 | P.PNGS ---
Subjective Patient reports: feels better, pain is less, tolerating a regular diet Interval history: DAILY PROGRESS NOTE FOR SURGICAL ATTENDING, DR. SWETHA GIBBS Up to chair Asking about timeline to go home Physical Exam Vital signs: Vital Signs 06/12/18 16:00 06/12/18 18:01 06/12/18 20:00 Temperature 97.5 F L 97.5 F L Pulse Rate 88 83 Respiratory Rate 18 21 18 Blood Pressure 163/81 H 167/79 H Pulse Oximetry 95 96 06/13/18 00:00 06/13/18 08:00 Temperature 97.7 F 97.7 F Pulse Rate 75 75 Respiratory Rate 20 16 Blood Pressure 162/88 H 155/84 H Pulse Oximetry 95 96 Intake & Output 06/12/18 06/13/18 06/13/18 18:59 06:59 18:59 Intake Total 2604 / 2604 780 / 780 Output Total 180 / 180 130 / 130 Balance 2424 / 2424 650 / 650 Weight 136.6 kg Intake: IV 804 / 804 NS + KCl 20 mEq Inj 1,000 ML @ 504 / 504 84 mls/hr IV.CONT .[id number] [facility] Rx#:[id number] Zosyn 4.5 GM Premix 4.5 gm In 200 / 200 100 ml @ 200 mls/hr IV.SIG Q6H [facility] Rx#:[id number] Flagyl 500 MG Inj 100 ML @ 100 100 / 100 mls/hr IV.SIG Q8H [facility] Rx#: [id number] Oral 1800 / 1800 780 / 780 Output: Wound Drainage 180 / 180 130 / 130 # 1 Right 180 / 180 Right Lateral Abdomen 130 / 130 Other: # Voids 3 3 Narrative: Alert and awake Abd: soft; biliary drain in place with thin bilious drainage Results - Labs 06/12/18 06:39 06/13/18 06:48 Laboratory Results - last 24 hr 06/12/18 06/12/18 06/13/18 06:39 16:20 06:48 Sodium 136 138 Potassium 3.0 L 3.4 L Chloride 101 102 Carbon Dioxide 29.1 29.4 Anion Gap 6 7 BUN 14 12 Creatinine 1.01 0.99 Estimated GFR 75 L 77 L Random Glucose 131 H 126 H Calcium 7.4 L* 7.7 L Calcium Adj for Albumin 9.2 Magnesium 2.3 Albumin 1.8 L - Imaging Imaging: ITS Impressions Chest X-Ray 06/09/18 20:05 CONCLUSION: Bibasilar atelectasis and upper limits of normal heart size. Abscess Drainage CT 06/10/18 00:00 CONCLUSION: 1. Uncomplicated CT guided cholecystostomy drain placement. 2. Small potential abscess in the left lobe of the liver is no longer visualized following cholecystostomy drainage. Recommend close interval follow- up contrast enhanced CT examination for evaluation. Abdomen/Pelvis CT 06/12/18 00:00 CONCLUSION: 1. Slight interval decrease in the size of the rim-enhancing area of low attenuation within the left lobe of the liver adjacent to the gallbladder fossa which now measures 3.7 cm. This likely represents improving liver abscess. 2. Nondistended thick-walled gallbladder with minimal pericholecystic fluid. A cholecystostomy catheter is noted within the lumen of the gallbladder. 3. Fatty infiltration liver. 4. Mild splenomegaly. 5. 11 mm right renal cyst. 6. Uncomplicated colonic diverticulosis. Assessment and Plan - Assessment (1) Liver abscess Code(s): K75.0 - Abscess of liver Status: Acute Plan: acute cholecystitis liver abscess s/p drain -Repeat CT shows decreasing size of abscess -Continue antibiotics -Okay to DC from GS standpoint on antibiotics -ID following -DC with drain; follow up TuesdayJun 16 -Rx for [place] left on chart (2) Cholecystitis Code(s): K81.9 - Cholecystitis, unspecified Status: Acute - Attending Attestation NOTE FOR SURGICAL ATTENDING, DR. SWETHA GIBBS Patient is ready to go home Discussed with Dr. Yancey He will follow-up the end of the week in his office I agree with above assessment and plan. The exam, history, and the medical decision-making described in the above note were completed with the assistance of the mid-level provider. I reviewed and agree with the findings presented. I attest that I had a [id number] encounter with the patient on the same day, and personally performed and documented my assessment and findings in the medical record. The following services were provided during this hospital visit: Chart data review, vital sign assessments/reviewing monitor data Review of consultations notes if present. Medication orders/review and/or management Ordering and/or reviewing lab tests Ordering and/or interpreting/reviewing x-rays and/or diagnostic studies Care of the patient and discussion of the patient with the care team Documentation time To help prompt me to consider important information that might be impacting today's encounter and assessment, Information from prior notes written by myself or my colleagues may have been "brought forward/copy and pasted" into today's note.
--- NOTE | 2018-06-13 13:48 | ECG ---
Date Performed: 06/12/2018 Time Performed: 15:47:38 PTAGE: 62 years EKG: Sinus rhythm NORMAL ECG Compared to PREVIOUS TRACING , the sinus rate is slower. PREVIOUS TRACIN06/09/2018 20.13 DOCTOR: Zac Hines Interpretating Date/Time 06/13/2018 13:47:16
--- NOTE | 2018-06-14 08:36 | P.DS ---
Date of admission: 06/09/18 23:43 Primary care physician: Nestor William MD Brief History from admission: UA negative for UTI.This is a 62-year-old male with a PMH of HTN who was brought to the ER by EMS for complaints of generalized malaise, abdominal pain, nausea/vomiting and SOB. Upon EMS arrival, pt noted to be febrile w/ Temp 102.0. No h/o similar symptoms. Abdominal pain is epigastric, intermittent, sharp, 8/10, non-radiating. On arrival, BP 184/93, HR 128, O2 sat 95% on RA, Temp 102.8. CBC unremarkable. Creatinine 1.60, no previous labs for comparison. Lactic Acid 5.8, repeat 2.1. Troponin negative. Lipase normal. CXR with no significant findings. Abdomen/Pelvis markedly abnormal gallbladder with thickened wall and surrounding inflammatory stranding, low density areas in the adjacent hepatic parenchyma presumably intrahepatic abscesses. Dr. Felix consulted by ER physician, will evaluate. S/p Rocephin/Bhumi in ER. DS: Diagnosis - Discharge Diagnosis (1) Sepsis Status: Acute (2) Cholecystitis Status: Acute (3) Liver abscess Status: Acute DS: Medications - Discharge Medications Prescriptions: amoxicillin-pot clavulanate 1 tab PO Q12HR #56 tab hydrocodone-acetaminophen 1 tab PO Q6H PRN #18 tab PRN Reason: acute pain exception potassium chloride [K-Tab] 20 meq PO BID #60 tab DS: Summary Hospital Course: Patient was admitted, started on fluids and antibiotics. Under general surgery' s recommendations, IR inserted percutaneous cholostomy drain to address cholecystitis and suspected associated liver abscess. Culture from gallbladder fluid as well as blood cultures grew out Klebsiella pneumonia, infectious disease was consulted and ultimately recommended oral antibiotics. Patient was tolerating p.o. intake well and his pain level had been controlled. Sepsis, resolved. Patient is met maximal benefit from hospitalization is clinically stable for discharge. Pt instructed to follow-up closely with general surgery outpatient with current percutaneous drain in place for now. - Time Spent with Patient Total time spent providing and/or coordinating discharge services: Less than 30 minutes - Quality: VTE Deep Vein Thrombosis/Pulmonary Embolism Present on Admission: No Exam Vital signs: Intake & Output 06/13/18 06/14/18 06/14/18 18:59 06:59 18:59 Output Total 50 / 50 Balance -50 / -50 Output: Wound Drainage 50 / 50 # 1 Right 50 / 50 Other: Date of Last Bowel Movement 06/13/18 Narrative: Heart sounds regular rate and rhythm Clear lungs bilaterally, unlabored breathing No jaundice Abdomen soft, nontender, only minimal tenderness surrounding cholecystostomy insertion site over right abdomen, otherwise abdomen is benign Percutaneous cholecystostomy drain in place Awake alert, no acute distress Results Procedures completed during hospitalization: Percutaneous cholecystostomy Labs on day of discharge: Preliminary micro results at discharge 06/10/18 16:35 Aerobic Blood Culture - Preliminary Blood - Peripheral No growth in 3 days Anaerobic Blood Culture - Preliminary No growth in 3 days 06/10/18 16:40 Aerobic Blood Culture - Preliminary Blood - Peripheral No growth in 3 days Anaerobic Blood Culture - Preliminary No growth in 3 days - Impressions ITS Impressions Chest X-Ray 06/09/18 20:05 CONCLUSION: Bibasilar atelectasis and upper limits of normal heart size. Abscess Drainage CT 06/10/18 00:00 CONCLUSION: 1. Uncomplicated CT guided cholecystostomy drain placement. 2. Small potential abscess in the left lobe of the liver is no longer visualized following cholecystostomy drainage. Recommend close interval follow- up contrast enhanced CT examination for evaluation. Abdomen/Pelvis CT 06/12/18 00:00 CONCLUSION: 1. Slight interval decrease in the size of the rim-enhancing area of low attenuation within the left lobe of the liver adjacent to the gallbladder fossa which now measures 3.7 cm. This likely represents improving liver abscess. 2. Nondistended thick-walled gallbladder with minimal pericholecystic fluid. A cholecystostomy catheter is noted within the lumen of the gallbladder. 3. Fatty infiltration liver. 4. Mild splenomegaly. 5. 11 mm right renal cyst. 6. Uncomplicated colonic diverticulosis. Discharge Plan - Discharge Disposition Patient Disposition: Discharge Home - Discharge Condition Condition: Stable - Discharge Order Discharge Orders: Discharge Order (Routine); Ordered 06/13/18 Ordered By: Willie Toure - Discharge Details Anticipated Discharge Date: 06/09/18 Discharge Comment: DC if cleared w/ gen surg for discharge - Physicians Team Primary Care Provider: Nestor William Attending Provider: Willie Toure Other Providers: Marques Yancey MD ; Cait Chappell MD
== END 2018-06-13 13:22 | disposition home or self-care (01) ==
LOC: NEDA 19:55 → NEPC 19:55 → OBSVTOIN 23:43 → N07 06-10 01:37
PROVIDERS: ADMIT Hospitalist; ATTEND Hospitalist
DX: R68.2 Dry mouth, unspecified; R73.03 Prediabetes; E66.9 Obesity, unspecified; A41.59 Other Gram-negative sepsis; R11.2 Nausea with vomiting, unspecified; B96.1 Klebsiella pneumoniae [K. pneumoniae] as the cause of diseases classified elsewhere; I10 Essential (primary) hypertension; K81.0 Acute cholecystitis; K75.0 Abscess of liver; E87.6 Hypokalemia; Z83.3 Family history of diabetes mellitus; Z68.41 Body mass index [BMI] 40.0-44.9, adult; R53.81 Other malaise; G89.29 Other chronic pain